=== PATIENT | male | born 1935 | race Asian ===

== ENCOUNTER 2016-11-16 15:11 | Inpatient (IN) | payer MEDICARE, OTHER ==
[~2016-11-16] VITALS: Ht 165.1 cm; Wt 63.5 kg
[2016-11-16 17:18] VITALS: BP 118/68
[2016-11-16] MEDS ORDERED: ACETAMINOPHEN 325 MG TABLET PO PRN (17:30)
[2016-11-16] MEDS ORDERED: MAGNESIUM HYDROXIDE 30 ML UDC PO PRN (17:30)
[2016-11-16] MEDS ORDERED: TEMAZEPAM 7.5 MG CAPSULE PO PRN (17:30)
[2016-11-16] MEDS ORDERED: clonazePAM 0.5 MG TABLET PO PRN (17:30)
[2016-11-16] MEDS ORDERED: MAG HYDROX/AL HYDROX/SIMETH 30 ML UDC PO PRN (17:30)
[2016-11-16] MEDS ORDERED: ISON300T27 PO (18:02)
[2016-11-16] MEDS ORDERED: ESOM40CA PO (18:02)
[2016-11-16] MEDS ORDERED: METF500T4 PO (18:02)
[2016-11-16] MEDS ORDERED: PYRI50TA93 PO (18:02)
[2016-11-16] MEDS ORDERED: HYDR-552 PO (18:02)
[2016-11-16] MEDS ORDERED: POLY17PO4 PO (18:02)
[2016-11-16] MEDS ORDERED: IPRA0.2S49 NEB (18:02)
[2016-11-16] MEDS ORDERED: RIFA600V4 PO (18:02)
[2016-11-16] MEDS ORDERED: ETHA400T8 PO (18:02)
[2016-11-16] MEDS ORDERED: PYRA500T11 PO (18:02)
[2016-11-16] MEDS ORDERED: Z GUARD REMEDY 2 OZ OINT TP PRN (18:30)
[2016-11-16] MEDS ORDERED: DEXTROSE 50%-WATER 50 ML DISP.SYRIN IV PRN (18:30)
[2016-11-16] MEDS ORDERED: INSULIN REGULAR, HUMAN 100 UNIT/ML 3 ML VIAL SQ PRN (18:30)
[2016-11-16 19:51] VITALS: BP 100/65
[2016-11-16] MEDS: BLOOD SUGAR DIAGNOSTIC 1 EACH STRIP IN SCH (21:54)
[2016-11-17 07:28] LABS: ALBUMIN 3.3 g/dL (3.4-5.0); BILIRUBIN,TOTAL 0.5 mg/dL (0.2-1.0); CALCIUM, SERUM 8.7 mg/dL (8.5-10.1); CREATININE 0.9 mg/dL (0.6-1.3); POTASSIUM 3.4 mmol/L (3.5-5.1); TOTAL PROTEIN, SERUM 6.6 g/dL (6.4-8.2)
[2016-11-17] MEDS ORDERED: SELE5TAB8 PO (07:52)
[2016-11-17] MEDS ORDERED: ZOLP5TAB2 PO (07:52)
[2016-11-17] MEDS ORDERED: IPRA0.2S9 IH (07:52)
[2016-11-17] MEDS ORDERED: LEVA1.257 IH (07:52)
[2016-11-17] MEDS ORDERED: BISA5TAB10 PO (07:52)
[2016-11-17] MEDS ORDERED: ACET-868 PO (07:52)
[2016-11-17] MEDS ORDERED: INSU100V27 SQ (07:52)
[2016-11-17] MEDS ORDERED: LACT10SO7 PO (07:52)
[2016-11-17] MEDS ORDERED: ALBU2.5V12 IH (07:52)
[2016-11-17] MEDS ORDERED: LORA1TAB PO (07:52)
[2016-11-17] MEDS ORDERED: MAGN400O6 PO (07:52)
[2016-11-17 08:00] VITALS: BP 131/66
[2016-11-17] MEDS: BLOOD SUGAR DIAGNOSTIC 1 EACH STRIP IN SCH (08:09)
[2016-11-17] MEDS ORDERED: ACETAMINOPHEN 325 MG TABLET PO PRN (11:30)
[2016-11-17] MEDS ORDERED: DEXTROSE 50%-WATER 50 ML DISP.SYRIN IV PRN (11:30)
[2016-11-17] MEDS ORDERED: BISACODYL (5 MG) 5 MG TABLET.DR PO PRN (11:30)
[2016-11-17] MEDS ORDERED: ALBUTEROL FS 2.5 MG/0.5 ML VIAL.NEB IH PRN (11:30)
[2016-11-17] MEDS ORDERED: MAGNESIUM HYDROXIDE 30 ML UDC PO PRN (11:30)
[2016-11-17] MEDS ORDERED: POLYETHYLENE GLYCOL 3350 17 GM POWD.PACK PO PRN (11:30)
[2016-11-17] MEDS ORDERED: LEVALBUTEROL HCL NEB 1.25 MG/0.5 ML VIAL.NEB IH PRN (11:30)
[2016-11-17] MEDS ORDERED: IPRATROPIUM NEB FS 0.5 MG/2.5 ML AMPUL.NEB IH PRN (11:30)
[2016-11-17] MEDS ORDERED: HYDROCODONE/APAP 5/325MG 1 EACH TABLET PO PRN (11:30)
[2016-11-17] MEDS: ESCITALOPRAM OXALATE (10 MG) 10 MG TABLET PO SCH (11:53)
[2016-11-17] MEDS: QUETIAPINE FUMARATE 25 MG TABLET PO SCH ×2 (11:54→18:15)
[2016-11-17] MEDS ORDERED: SELEGILINE HCL 5 MG CAPSULE PO SCH (12:00)
[2016-11-17] MEDS: BLOOD SUGAR DIAGNOSTIC 1 EACH STRIP VI SCH ×3 (12:00→21:41)
[2016-11-17] MEDS ORDERED: POTASSIUM CHLORIDE 20 MEQ TAB.PRT.SR PO ONE (12:00)
[2016-11-17] MEDS: ISONIAZID (300 MG) 300 MG TABLET PO SCH (13:37)
[2016-11-17] MEDS: ETHAMBUTOL HCL (400 MG) 400 MG TABLET PO SCH ×2 (13:38→18:15)
[2016-11-17] MEDS: PYRAZINAMIDE 500 MG TABLET PO SCH (13:39)
[2016-11-17] MEDS: PYRIDOXINE HCL 50 MG TABLET PO SCH (13:40)
[2016-11-17] MEDS: RIFAMPIN 300 MG CAPSULE PO SCH (13:40)
[2016-11-17 16:00] VITALS: BP 137/87
[2016-11-17 16:05] LABS: BASOPHILS % (AUTO) 0.5 % (0.0-2.0); DIFF TOTAL % 100 %; EOSINOPHILS # (AUTO) 0.2 /CMM (0.0-0.7); EOSINOPHILS % (AUTO) 2.3 % (0.0-6.0); HEMATOCRIT 36 % (39-51); LYMPHOCYTES # (AUTO) 1.7 /CMM (0.8-4.8); LYMPHOCYTES % (AUTO) 23.6 % (20.0-44.0); MEAN CORPUSCULAR HEMOGLOBIN 32 PG (26.0-33.0); MEAN CORPUSCULAR HGB CONC 34 g/dl (31.0-36.0); MEAN CORPUSCULAR VOLUME 95 fL (80-96); MONOCYTES # (AUTO) 0.9 /CMM (0.1-1.30); MONOCYTES % (AUTO) 12.2 % (2.0-12.0); NEUTROPHILS # (AUTO) 4.5 /CMM (1.8-8.9); NEUTROPHILS % (AUTO) 61.4 % (43.0-81.0); PLATELET COUNT (AUTO) 334 /CMM (150-450); RED BLOOD CELL COUNT(AUTO) 3.78 MIL/uL (4.5-6.0); WHITE BLOOD COUNT (AUTO) 7.4 K/uL (4.3-11.0)
[2016-11-17] MEDS: METFORMIN 500 MG TABLET PO SCH (18:15)
[2016-11-17 19:55] VITALS: BP 93/53
[2016-11-18 07:18] LABS: BASOPHILS # (AUTO) 0.1 /CMM (0.0-0.2); BASOPHILS % (AUTO) 1.3 % (0.0-2.0); DIFF TOTAL % 100 %; EOSINOPHILS # (AUTO) 0.1 /CMM (0.0-0.7); EOSINOPHILS % (AUTO) 1.4 % (0.0-6.0); HEMATOCRIT 37 % (39-51); HEMOGLOBIN 12.3 g/dL (13.5-17.5); LYMPHOCYTES # (AUTO) 1.4 /CMM (0.8-4.8); LYMPHOCYTES % (AUTO) 20.5 % (20.0-44.0); MEAN CORPUSCULAR HEMOGLOBIN 32 PG (26.0-33.0); MEAN CORPUSCULAR HGB CONC 34 g/dl (31.0-36.0); MEAN CORPUSCULAR VOLUME 94 fL (80-96); MONOCYTES # (AUTO) 0.6 /CMM (0.1-1.30); MONOCYTES % (AUTO) 8.9 % (2.0-12.0); NEUTROPHILS # (AUTO) 4.5 /CMM (1.8-8.9); NEUTROPHILS % (AUTO) 67.9 % (43.0-81.0); PLATELET COUNT (AUTO) 300 /CMM (150-450); WHITE BLOOD COUNT (AUTO) 6.6 K/uL (4.3-11.0)
[2016-11-18] MEDS: BLOOD SUGAR DIAGNOSTIC 1 EACH STRIP VI SCH ×4 (07:30→21:51)
[2016-11-18 08:00] VITALS: BP 100/60
[2016-11-18] MEDS: ETHAMBUTOL HCL (400 MG) 400 MG TABLET PO SCH ×3 (09:34→17:00)
[2016-11-18] MEDS: PYRIDOXINE HCL 50 MG TABLET PO SCH (09:35)
[2016-11-18] MEDS: PYRAZINAMIDE 500 MG TABLET PO SCH (09:35)
[2016-11-18] MEDS: RIFAMPIN 300 MG CAPSULE PO SCH (09:35)
[2016-11-18] MEDS: METFORMIN 500 MG TABLET PO SCH ×2 (09:36→17:00)
[2016-11-18] MEDS: QUETIAPINE FUMARATE 25 MG TABLET PO SCH ×2 (09:36→17:00)
[2016-11-18] MEDS: ISONIAZID (300 MG) 300 MG TABLET PO SCH (09:36)
[2016-11-18] MEDS: ESCITALOPRAM OXALATE (10 MG) 10 MG TABLET PO SCH (09:36)
[2016-11-18] MEDS: INSULIN REGULAR, HUMAN 100 UNIT/ML 3 ML VIAL SQ PRN (12:26)
[2016-11-18 16:00] VITALS: BP 131/69
[2016-11-18 20:00] VITALS: BP 125/75
[2016-11-19 07:16] LABS: BASOPHILS % (AUTO) 0.5 % (0.0-2.0); DIFF TOTAL % 100 %; EOSINOPHILS # (AUTO) 0.1 /CMM (0.0-0.7); EOSINOPHILS % (AUTO) 1.6 % (0.0-6.0); HEMATOCRIT 38 % (39-51); HEMOGLOBIN 12.8 g/dL (13.5-17.5); LYMPHOCYTES # (AUTO) 1.5 /CMM (0.8-4.8); LYMPHOCYTES % (AUTO) 25.3 % (20.0-44.0); MEAN CORPUSCULAR HEMOGLOBIN 32 PG (26.0-33.0); MEAN CORPUSCULAR HGB CONC 34 g/dl (31.0-36.0); MEAN CORPUSCULAR VOLUME 95 fL (80-96); MONOCYTES # (AUTO) 0.5 /CMM (0.1-1.30); MONOCYTES % (AUTO) 8.8 % (2.0-12.0); NEUTROPHILS # (AUTO) 3.7 /CMM (1.8-8.9); NEUTROPHILS % (AUTO) 63.8 % (43.0-81.0); PLATELET COUNT (AUTO) 318 /CMM (150-450); RED BLOOD CELL COUNT(AUTO) 3.99 MIL/uL (4.5-6.0); WHITE BLOOD COUNT (AUTO) 5.9 K/uL (4.3-11.0)
[2016-11-19 07:34] LABS: ALBUMIN 3.3 g/dL (3.4-5.0); BILIRUBIN,DIRECT 0.2 mg/dL (0.0-0.2); BILIRUBIN,TOTAL 0.6 mg/dL (0.2-1.0); CALCIUM, SERUM 8.7 mg/dL (8.5-10.1); CREATININE 0.9 mg/dL (0.6-1.3); INDIRECT BILIRUBIN 0.4 mg/dL (0.0-1.1); POTASSIUM 3.1 mmol/L (3.5-5.1); TOTAL PROTEIN, SERUM 6.7 g/dL (6.4-8.2)
[2016-11-19] MEDS: BLOOD SUGAR DIAGNOSTIC 1 EACH STRIP VI SCH ×4 (07:51→20:29)
[2016-11-19] MEDS: INSULIN REGULAR, HUMAN 100 UNIT/ML 3 ML VIAL SQ PRN (07:52)
[2016-11-19 08:00] VITALS: BP 103/59
[2016-11-19] MEDS: METFORMIN 500 MG TABLET PO SCH ×2 (08:58→17:00)
[2016-11-19] MEDS: QUETIAPINE FUMARATE 25 MG TABLET PO SCH ×3 (08:58→17:00)
[2016-11-19] MEDS: ESCITALOPRAM OXALATE (10 MG) 10 MG TABLET PO SCH (08:58)
[2016-11-19] MEDS: ISONIAZID (300 MG) 300 MG TABLET PO SCH (08:58)
[2016-11-19] MEDS: RIFAMPIN 300 MG CAPSULE PO SCH (08:58)
[2016-11-19] MEDS: ETHAMBUTOL HCL (400 MG) 400 MG TABLET PO SCH ×3 (08:58→17:00)
[2016-11-19] MEDS: PYRAZINAMIDE 500 MG TABLET PO SCH (08:58)
[2016-11-19] MEDS: PYRIDOXINE HCL 50 MG TABLET PO SCH (08:59)
[2016-11-19] MEDS ORDERED: POTASSIUM CHLORIDE 20 MEQ TAB.PRT.SR PO ONE (12:00)
[2016-11-19 16:33] VITALS: BP 96/65
[2016-11-19 19:56] VITALS: BP 90/70
[2016-11-20 08:00] VITALS: BP 100/65
[2016-11-20] MEDS: BLOOD SUGAR DIAGNOSTIC 1 EACH STRIP VI SCH ×4 (08:16→22:06)
[2016-11-20] MEDS: ISONIAZID (300 MG) 300 MG TABLET PO SCH (09:00)
[2016-11-20] MEDS: METFORMIN 500 MG TABLET PO SCH ×2 (09:00→17:00)
[2016-11-20] MEDS: ESCITALOPRAM OXALATE (10 MG) 10 MG TABLET PO SCH (09:00)
[2016-11-20] MEDS: PYRAZINAMIDE 500 MG TABLET PO SCH (09:00)
[2016-11-20] MEDS: PYRIDOXINE HCL 50 MG TABLET PO SCH (09:00)
[2016-11-20] MEDS: QUETIAPINE FUMARATE 25 MG TABLET PO SCH ×3 (09:00→17:00)
[2016-11-20] MEDS: ETHAMBUTOL HCL (400 MG) 400 MG TABLET PO SCH ×3 (09:00→17:00)
[2016-11-20] MEDS: RIFAMPIN 300 MG CAPSULE PO SCH (09:00)
[2016-11-20] MEDS ORDERED: ONDANSETRON 4 MG TAB.RAPDIS PO PRN (10:00)
[2016-11-20 14:37] LABS: ALBUMIN 3.4 g/dL (3.4-5.0); BILIRUBIN,DIRECT 0.3 mg/dL (0.0-0.2); BILIRUBIN,TOTAL 0.7 mg/dL (0.2-1.0); INDIRECT BILIRUBIN 0.4 mg/dL (0.0-1.1); TOTAL PROTEIN, SERUM 6.7 g/dL (6.4-8.2)
[2016-11-20 16:00] VITALS: BP 115/76
[2016-11-20 20:25] VITALS: BP 94/53
[2016-11-21 06:30] VITALS: BP 90/65
[2016-11-21] MEDS: BLOOD SUGAR DIAGNOSTIC 1 EACH STRIP VI SCH ×4 (07:34→22:48)
[2016-11-21 07:48] LABS: BASOPHILS % (AUTO) 0.6 % (0.0-2.0); DIFF TOTAL % 100 %; EOSINOPHILS # (AUTO) 0.1 /CMM (0.0-0.7); EOSINOPHILS % (AUTO) 2.1 % (0.0-6.0); HEMATOCRIT 37 % (39-51); HEMOGLOBIN 12.4 g/dL (13.5-17.5); LYMPHOCYTES # (AUTO) 1.6 /CMM (0.8-4.8); LYMPHOCYTES % (AUTO) 26.2 % (20.0-44.0); MEAN CORPUSCULAR HEMOGLOBIN 32 PG (26.0-33.0); MEAN CORPUSCULAR HGB CONC 34 g/dl (31.0-36.0); MEAN CORPUSCULAR VOLUME 94 fL (80-96); MONOCYTES # (AUTO) 0.6 /CMM (0.1-1.30); MONOCYTES % (AUTO) 9.3 % (2.0-12.0); NEUTROPHILS # (AUTO) 3.7 /CMM (1.8-8.9); NEUTROPHILS % (AUTO) 61.8 % (43.0-81.0); PLATELET COUNT (AUTO) 340 /CMM (150-450); RED BLOOD CELL COUNT(AUTO) 3.88 MIL/uL (4.5-6.0)
[2016-11-21 07:59] LABS: ALBUMIN 3.5 g/dL (3.4-5.0); BILIRUBIN,DIRECT 0.2 mg/dL (0.0-0.2); BILIRUBIN,TOTAL 0.6 mg/dL (0.2-1.0); CALCIUM, SERUM 9.1 mg/dL (8.5-10.1); INDIRECT BILIRUBIN 0.4 mg/dL (0.0-1.1); POTASSIUM 3.1 mmol/L (3.5-5.1); TOTAL PROTEIN, SERUM 6.8 g/dL (6.4-8.2)
[2016-11-21 08:00] VITALS: BP 103/67
[2016-11-21] MEDS: ETHAMBUTOL HCL (400 MG) 400 MG TABLET PO SCH ×3 (09:00→17:00)
[2016-11-21] MEDS: METFORMIN 500 MG TABLET PO SCH ×2 (09:00→17:00)
[2016-11-21] MEDS: PYRIDOXINE HCL 50 MG TABLET PO SCH (09:00)
[2016-11-21] MEDS: ESCITALOPRAM OXALATE (10 MG) 10 MG TABLET PO SCH (09:00)
[2016-11-21] MEDS: ISONIAZID (300 MG) 300 MG TABLET PO SCH (09:00)
[2016-11-21] MEDS: PYRAZINAMIDE 500 MG TABLET PO SCH (09:00)
[2016-11-21] MEDS: QUETIAPINE FUMARATE 25 MG TABLET PO SCH ×3 (09:00→17:00)
[2016-11-21] MEDS: RIFAMPIN 300 MG CAPSULE PO SCH (09:00)
[2016-11-21 16:20] VITALS: BP 99/60
[2016-11-21] MEDS ORDERED: POTASSIUM CHLORIDE 20 MEQ TAB.PRT.SR PO ONE (17:00)
[2016-11-21 23:47] VITALS: BP 110/73
[2016-11-22] MEDS: BLOOD SUGAR DIAGNOSTIC 1 EACH STRIP VI SCH ×4 (07:44→22:11)
[2016-11-22 08:00] VITALS: BP 102/59
[2016-11-22] MEDS: ESCITALOPRAM OXALATE (10 MG) 10 MG TABLET PO SCH (09:00)
[2016-11-22] MEDS: ISONIAZID (300 MG) 300 MG TABLET PO SCH (09:00)
[2016-11-22] MEDS: PYRAZINAMIDE 500 MG TABLET PO SCH (09:00)
[2016-11-22] MEDS: RIFAMPIN 300 MG CAPSULE PO SCH (09:00)
[2016-11-22] MEDS: QUETIAPINE FUMARATE 25 MG TABLET PO SCH ×3 (09:00→17:00)
[2016-11-22] MEDS: METFORMIN 500 MG TABLET PO SCH ×2 (09:00→17:00)
[2016-11-22] MEDS: PYRIDOXINE HCL 50 MG TABLET PO SCH (09:00)
[2016-11-22] MEDS: ETHAMBUTOL HCL (400 MG) 400 MG TABLET PO SCH ×3 (09:00→17:00)
[2016-11-22 15:59] VITALS: BP 90/68
[2016-11-22 20:00] VITALS: BP 102/70
[2016-11-22] MEDS: BOOST GLUCOSE CONTROL VANILLA 237 ML BOX PO SCH (22:11)
[2016-11-23] MEDS: BLOOD SUGAR DIAGNOSTIC 1 EACH STRIP VI SCH ×4 (07:30→21:43)
[2016-11-23 08:09] VITALS: BP 96/73
[2016-11-23 08:17] VITALS: BP 96/73
[2016-11-23] MEDS: PYRAZINAMIDE 500 MG TABLET PO SCH (09:00)
[2016-11-23] MEDS: ISONIAZID (300 MG) 300 MG TABLET PO SCH (09:00)
[2016-11-23] MEDS: PYRIDOXINE HCL 50 MG TABLET PO SCH (09:00)
[2016-11-23] MEDS: ESCITALOPRAM OXALATE (10 MG) 10 MG TABLET PO SCH (09:00)
[2016-11-23] MEDS: BOOST GLUCOSE CONTROL VANILLA 237 ML BOX PO SCH ×3 (09:00→17:00)
[2016-11-23] MEDS: RIFAMPIN 300 MG CAPSULE PO SCH (09:00)
[2016-11-23] MEDS: METFORMIN 500 MG TABLET PO SCH ×2 (09:00→17:00)
[2016-11-23] MEDS: QUETIAPINE FUMARATE 25 MG TABLET PO SCH ×3 (09:00→17:00)
[2016-11-23] MEDS: ETHAMBUTOL HCL (400 MG) 400 MG TABLET PO SCH ×3 (09:00→17:00)
[2016-11-23 16:00] VITALS: BP 100/70
[2016-11-23 17:21] LABS: BASOPHILS % (AUTO) 0.5 % (0.0-2.0); DIFF TOTAL % 100 %; EOSINOPHILS # (AUTO) 0.1 /CMM (0.0-0.7); EOSINOPHILS % (AUTO) 1.3 % (0.0-6.0); HEMATOCRIT 39 % (39-51); HEMOGLOBIN 12.8 g/dL (13.5-17.5); LYMPHOCYTES # (AUTO) 1.7 /CMM (0.8-4.8); LYMPHOCYTES % (AUTO) 31.3 % (20.0-44.0); MEAN CORPUSCULAR HEMOGLOBIN 31 PG (26.0-33.0); MEAN CORPUSCULAR HGB CONC 33 g/dl (31.0-36.0); MEAN CORPUSCULAR VOLUME 94 fL (80-96); MONOCYTES # (AUTO) 0.5 /CMM (0.1-1.30); MONOCYTES % (AUTO) 8.7 % (2.0-12.0); NEUTROPHILS # (AUTO) 3.2 /CMM (1.8-8.9); NEUTROPHILS % (AUTO) 58.2 % (43.0-81.0); PLATELET COUNT (AUTO) 329 /CMM (150-450); RED BLOOD CELL COUNT(AUTO) 4.11 MIL/uL (4.5-6.0); WHITE BLOOD COUNT (AUTO) 5.5 K/uL (4.3-11.0)
[2016-11-23 17:34] LABS: ANION GAP 16 (5-14); CARBON DIOXIDE 25 mmol/L (21-32); CHLORIDE 105 mmol/L (98-107); GLUCOSE 125 mg/dL (74-106); POTASSIUM 3.2 mmol/L (3.5-5.1); SODIUM SERUM 143 mmol/L (136-145); UREA NITROGEN, BLOOD 20 mg/dL (7-18)
[2016-11-23 17:40] LABS: ALANINE AMINOTRANSFERASE 154 U/L (12-78); ALBUMIN 3.5 g/dL (3.4-5.0); ASPARTATE AMINOTRANSFERASE 85 U/L (15-37); BILIRUBIN,DIRECT 0.3 mg/dL (0.0-0.2); BILIRUBIN,TOTAL 0.6 mg/dL (0.2-1.0); INDIRECT BILIRUBIN 0.3 mg/dL (0.0-1.1); TOTAL PROTEIN, SERUM 6.8 g/dL (6.4-8.2)
[2016-11-23 17:47] LABS: TROPONIN I < 0.017 ng/mL (0.00-0.056)
[2016-11-23] MEDS ORDERED: IV D5/0.45 NACL 1,000 ML IV ONE (18:00)
[2016-11-23] MEDS: POTASSIUM CHLORIDE 20 MEQ TAB.PRT.SR PO ONE ×2 (19:00→19:12)
[2016-11-23 20:06] VITALS: BP 123/67
[2016-11-24] MEDS: BLOOD SUGAR DIAGNOSTIC 1 EACH STRIP VI SCH ×4 (07:30→21:33)
[2016-11-24 08:15] VITALS: BP 100/56
[2016-11-24] MEDS: BOOST GLUCOSE CONTROL VANILLA 237 ML BOX PO SCH ×3 (09:00→17:00)
[2016-11-24] MEDS: METFORMIN 500 MG TABLET PO SCH ×2 (09:00→17:00)
[2016-11-24] MEDS: PYRIDOXINE HCL 50 MG TABLET PO SCH (09:00)
[2016-11-24] MEDS: PYRAZINAMIDE 500 MG TABLET PO SCH (09:00)
[2016-11-24] MEDS: ETHAMBUTOL HCL (400 MG) 400 MG TABLET PO SCH ×3 (09:00→17:00)
[2016-11-24] MEDS: RIFAMPIN 300 MG CAPSULE PO SCH (09:00)
[2016-11-24] MEDS: QUETIAPINE FUMARATE 25 MG TABLET PO SCH ×3 (09:00→17:00)
[2016-11-24] MEDS: ISONIAZID (300 MG) 300 MG TABLET PO SCH (09:00)
[2016-11-24] MEDS: ESCITALOPRAM OXALATE (10 MG) 10 MG TABLET PO SCH (09:00)
[2016-11-24 16:00] VITALS: BP 95/70
[2016-11-24] MEDS ORDERED: POTASSIUM CHLORIDE 20 MEQ POWDER PACKET GT ONE (18:00)
[2016-11-24 19:50] VITALS: BP 96/61
[2016-11-24] MEDS ORDERED: IV NS 0.9% 500 ML IV ONE ×2 (20:30→20:35)
[2016-11-24] MEDS ORDERED: IV SET PRIMARY PUMP SET 1 EA INFUS.SET MC ONE (20:33)
[2016-11-25 06:22] VITALS: BP 100/67
[2016-11-25 07:59] VITALS: BP 90/62
[2016-11-25 08:18] LABS: ALBUMIN 3.5 g/dL (3.4-5.0); BILIRUBIN,DIRECT 0.2 mg/dL (0.0-0.2); BILIRUBIN,TOTAL 0.7 mg/dL (0.2-1.0); CALCIUM, SERUM 8.8 mg/dL (8.5-10.1); INDIRECT BILIRUBIN 0.5 mg/dL (0.0-1.1); TOTAL PROTEIN, SERUM 6.8 g/dL (6.4-8.2)
[2016-11-25 08:33] LABS: BASOPHILS % (AUTO) 0.4 % (0.0-2.0); DIFF TOTAL % 100 %; EOSINOPHILS # (AUTO) 0.1 /CMM (0.0-0.7); HEMATOCRIT 39 % (39-51); LYMPHOCYTES # (AUTO) 1.5 /CMM (0.8-4.8); LYMPHOCYTES % (AUTO) 23.3 % (20.0-44.0); MEAN CORPUSCULAR HEMOGLOBIN 32 PG (26.0-33.0); MEAN CORPUSCULAR HGB CONC 34 g/dl (31.0-36.0); MEAN CORPUSCULAR VOLUME 95 fL (80-96); MONOCYTES # (AUTO) 0.6 /CMM (0.1-1.30); MONOCYTES % (AUTO) 9.6 % (2.0-12.0); NEUTROPHILS # (AUTO) 4.2 /CMM (1.8-8.9); NEUTROPHILS % (AUTO) 65.7 % (43.0-81.0); PLATELET COUNT (AUTO) 321 /CMM (150-450); RED BLOOD CELL COUNT(AUTO) 4.08 MIL/uL (4.5-6.0); WHITE BLOOD COUNT (AUTO) 6.4 K/uL (4.3-11.0)
[2016-11-25] MEDS: BLOOD SUGAR DIAGNOSTIC 1 EACH STRIP VI SCH ×4 (08:46→21:59)
[2016-11-25] MEDS: ISONIAZID (300 MG) 300 MG TABLET PO SCH (09:00)
[2016-11-25] MEDS: QUETIAPINE FUMARATE 25 MG TABLET PO SCH ×3 (09:00→17:00)
[2016-11-25] MEDS: METFORMIN 500 MG TABLET PO SCH ×2 (09:00→17:00)
[2016-11-25] MEDS: RIFAMPIN 300 MG CAPSULE PO SCH (09:00)
[2016-11-25] MEDS: BOOST GLUCOSE CONTROL VANILLA 237 ML BOX PO SCH ×3 (09:00→17:00)
[2016-11-25] MEDS: ESCITALOPRAM OXALATE (10 MG) 10 MG TABLET PO SCH (09:00)
[2016-11-25] MEDS ORDERED: POTASSIUM CHLORIDE 20 MEQ TAB.PRT.SR PO ONE (09:00)
[2016-11-25] MEDS: PYRIDOXINE HCL 50 MG TABLET PO SCH (09:00)
[2016-11-25] MEDS: PYRAZINAMIDE 500 MG TABLET PO SCH (09:00)
[2016-11-25] MEDS: ETHAMBUTOL HCL (400 MG) 400 MG TABLET PO SCH ×3 (09:00→17:00)
[2016-11-25 16:19] VITALS: BP 108/71
[2016-11-25 20:50] VITALS: BP 97/60
[2016-11-25] MEDS ORDERED: IV NS 0.9% 1,000 ML ONE (20:51)
[2016-11-25] MEDS ORDERED: IV SET PRIMARY PUMP SET 1 EA INFUS.SET MC ONE ×2 (20:52→23:09)
[2016-11-25] MEDS ORDERED: IV NS 0.9% 1,000 ML BAG IV ONE (21:00)
[2016-11-25] MEDS ORDERED: POTASSIUM CL. PREMIX PERIPHER. 200 ML ONE (22:26)
[2016-11-25] MEDS: POTASSIUM CL. PREMIX PERIPHER. 50 ML IV SCH (23:13)
[2016-11-26] MEDS: POTASSIUM CL. PREMIX PERIPHER. 50 ML IV SCH ×3 (00:14→02:54)
[2016-11-26 07:18] LABS: CALCIUM, SERUM 8.4 mg/dL (8.5-10.1); CREATININE 0.9 mg/dL (0.6-1.3); POTASSIUM 3.4 mmol/L (3.5-5.1)
[2016-11-26] MEDS: BLOOD SUGAR DIAGNOSTIC 1 EACH STRIP VI SCH ×4 (07:30→22:16)
[2016-11-26 08:30] VITALS: BP 132/63
[2016-11-26] MEDS ORDERED: SODIUM CL FOR INHALATION 3% 15 ML VIAL.NEB IH ONE (08:30)
[2016-11-26] MEDS: PYRIDOXINE HCL 50 MG TABLET PO SCH (09:00)
[2016-11-26] MEDS: PYRAZINAMIDE 500 MG TABLET PO SCH (09:00)
[2016-11-26] MEDS: ISONIAZID (300 MG) 300 MG TABLET PO SCH (09:00)
[2016-11-26] MEDS: METFORMIN 500 MG TABLET PO SCH ×2 (09:00→17:00)
[2016-11-26] MEDS: QUETIAPINE FUMARATE 25 MG TABLET PO SCH ×2 (09:00→13:00)
[2016-11-26] MEDS: ESCITALOPRAM OXALATE (10 MG) 10 MG TABLET PO SCH (09:00)
[2016-11-26] MEDS: ETHAMBUTOL HCL (400 MG) 400 MG TABLET PO SCH ×3 (09:00→17:00)
[2016-11-26] MEDS: RIFAMPIN 300 MG CAPSULE PO SCH (09:00)
[2016-11-26] MEDS: BOOST GLUCOSE CONTROL VANILLA 237 ML BOX PO SCH ×3 (09:00→17:00)
[2016-11-26] MEDS ORDERED: POTASSIUM CHLORIDE 20 MEQ TAB.PRT.SR PO ONE (09:30)
[2016-11-26 16:29] VITALS: BP 128/60
[2016-11-26 20:01] VITALS: BP 96/60
[2016-11-26] MEDS ORDERED: OLANZAPINE 10 MG VIAL IM PRN (22:00)
[2016-11-26] MEDS: OLANZAPINE 5 MG/TAB.RAPDIS PO SCH (22:26)
[2016-11-27] MEDS: BLOOD SUGAR DIAGNOSTIC 1 EACH STRIP VI SCH ×4 (07:30→22:03)
[2016-11-27 08:00] VITALS: BP 108/75
[2016-11-27 08:17] LABS: CALCIUM, SERUM 8.9 mg/dL (8.5-10.1); POTASSIUM 3.1 mmol/L (3.5-5.1)
[2016-11-27] MEDS: RIFAMPIN 300 MG CAPSULE PO SCH (09:00)
[2016-11-27] MEDS: BOOST GLUCOSE CONTROL VANILLA 237 ML BOX PO SCH ×3 (09:00→17:00)
[2016-11-27] MEDS: PYRAZINAMIDE 500 MG TABLET PO SCH (09:00)
[2016-11-27] MEDS: METFORMIN 500 MG TABLET PO SCH ×2 (09:00→17:00)
[2016-11-27] MEDS: POTASSIUM CHLORIDE 20 MEQ TAB.PRT.SR PO SCH ×2 (09:00→14:09)
[2016-11-27] MEDS: PYRIDOXINE HCL 50 MG TABLET PO SCH (09:00)
[2016-11-27] MEDS: ETHAMBUTOL HCL (400 MG) 400 MG TABLET PO SCH ×3 (09:00→17:00)
[2016-11-27] MEDS ORDERED: SODIUM CL FOR INHALATION 3% 15 ML VIAL.NEB IH ONE ×2 (09:00→18:00)
[2016-11-27] MEDS: ESCITALOPRAM OXALATE (10 MG) 10 MG TABLET PO SCH (09:00)
[2016-11-27] MEDS: ISONIAZID (300 MG) 300 MG TABLET PO SCH (09:00)
[2016-11-27 16:00] VITALS: BP 91/65
[2016-11-27 18:09] LABS: QFT NIL VALUE 0.11 IU/mL (.)
[2016-11-27 20:00] VITALS: BP 104/68
[2016-11-27] MEDS: OLANZAPINE 5 MG/TAB.RAPDIS PO SCH (22:03)
[2016-11-27] MEDS: INSULIN REGULAR, HUMAN 100 UNIT/ML 3 ML VIAL SQ PRN (22:16)
[2016-11-28] MEDS: BLOOD SUGAR DIAGNOSTIC 1 EACH STRIP VI SCH ×4 (07:30→22:01)
[2016-11-28 08:00] VITALS: BP 89/48
[2016-11-28 08:25] LABS: POTASSIUM 3.7 mmol/L (3.5-5.1)
[2016-11-28] MEDS: PYRAZINAMIDE 500 MG TABLET PO SCH (09:00)
[2016-11-28] MEDS: PYRIDOXINE HCL 50 MG TABLET PO SCH (09:00)
[2016-11-28] MEDS: ESCITALOPRAM OXALATE (10 MG) 10 MG TABLET PO SCH (09:00)
[2016-11-28] MEDS: ETHAMBUTOL HCL (400 MG) 400 MG TABLET PO SCH ×3 (09:00→17:00)
[2016-11-28] MEDS: RIFAMPIN 300 MG CAPSULE PO SCH (09:00)
[2016-11-28] MEDS: ISONIAZID (300 MG) 300 MG TABLET PO SCH (09:00)
[2016-11-28] MEDS: BOOST GLUCOSE CONTROL VANILLA 237 ML BOX PO SCH ×3 (09:00→17:00)
[2016-11-28] MEDS: METFORMIN 500 MG TABLET PO SCH ×2 (09:00→17:00)
[2016-11-28 16:00] VITALS: BP 99/76
[2016-11-28 20:00] VITALS: BP 82/57
[2016-11-28] MEDS ORDERED: IV NS 0.9% 1,000 ML ONE (21:38)
[2016-11-28] MEDS ORDERED: IV SET PRIMARY PUMP SET 1 EA INFUS.SET MC ONE (21:39)
[2016-11-28] MEDS: OLANZAPINE 5 MG/TAB.RAPDIS PO SCH (21:56)
[2016-11-28] MEDS ORDERED: IV NS 0.9% 1,000 ML BAG IV ONE (22:00)
[2016-11-29 00:17] VITALS: BP 104/75
[2016-11-29] MEDS: BLOOD SUGAR DIAGNOSTIC 1 EACH STRIP VI SCH ×4 (07:30→21:43)
[2016-11-29 08:00] VITALS: BP 122/60
[2016-11-29] MEDS: ESCITALOPRAM OXALATE (10 MG) 10 MG TABLET PO SCH (09:00)
[2016-11-29] MEDS: PYRIDOXINE HCL 50 MG TABLET PO SCH (09:00)
[2016-11-29] MEDS: ISONIAZID (300 MG) 300 MG TABLET PO SCH (09:00)
[2016-11-29] MEDS: METFORMIN 500 MG TABLET PO SCH ×2 (09:00→17:00)
[2016-11-29] MEDS: PYRAZINAMIDE 500 MG TABLET PO SCH (09:00)
[2016-11-29] MEDS: BOOST GLUCOSE CONTROL VANILLA 237 ML BOX PO SCH ×3 (09:00→17:00)
[2016-11-29] MEDS: ETHAMBUTOL HCL (400 MG) 400 MG TABLET PO SCH ×3 (09:00→17:00)
[2016-11-29] MEDS: RIFAMPIN 300 MG CAPSULE PO SCH (09:00)
[2016-11-29 16:07] VITALS: BP 120/63
[2016-11-29 19:53] VITALS: BP 98/69
[2016-11-29] MEDS: OLANZAPINE 5 MG/TAB.RAPDIS PO SCH (21:42)
[2016-11-30 08:00] VITALS: BP 97/64
[2016-11-30] MEDS: METFORMIN 500 MG TABLET PO SCH ×2 (09:00→17:00)
[2016-11-30] MEDS: ESCITALOPRAM OXALATE (10 MG) 10 MG TABLET PO SCH (09:00)
[2016-11-30] MEDS: ETHAMBUTOL HCL (400 MG) 400 MG TABLET PO SCH ×3 (09:00→17:00)
[2016-11-30] MEDS: RIFAMPIN 300 MG CAPSULE PO SCH (09:00)
[2016-11-30] MEDS: PYRIDOXINE HCL 50 MG TABLET PO SCH (09:00)
[2016-11-30] MEDS: PYRAZINAMIDE 500 MG TABLET PO SCH (09:00)
[2016-11-30] MEDS: BOOST GLUCOSE CONTROL VANILLA 237 ML BOX PO SCH ×3 (09:00→17:00)
[2016-11-30] MEDS: ISONIAZID (300 MG) 300 MG TABLET PO SCH (09:00)
[2016-11-30] MEDS: BLOOD SUGAR DIAGNOSTIC 1 EACH STRIP VI SCH ×4 (09:31→21:59)
[2016-11-30 16:12] VITALS: BP 99/68
[2016-11-30 19:54] VITALS: BP 95/62
[2016-11-30] MEDS: OLANZAPINE 5 MG/TAB.RAPDIS PO SCH (21:54)
[2016-12-01] MEDS: BLOOD SUGAR DIAGNOSTIC 1 EACH STRIP VI SCH ×5 (08:01→23:15)
[2016-12-01 08:08] VITALS: BP 101/64
[2016-12-01] MEDS: RIFAMPIN 300 MG CAPSULE PO SCH (09:00)
[2016-12-01] MEDS: PYRAZINAMIDE 500 MG TABLET PO SCH (09:00)
[2016-12-01] MEDS: BOOST GLUCOSE CONTROL VANILLA 237 ML BOX PO SCH ×3 (09:00→17:00)
[2016-12-01] MEDS: ETHAMBUTOL HCL (400 MG) 400 MG TABLET PO SCH ×3 (09:00→17:00)
[2016-12-01] MEDS: METFORMIN 500 MG TABLET PO SCH ×2 (09:00→17:00)
[2016-12-01] MEDS: ISONIAZID (300 MG) 300 MG TABLET PO SCH (09:00)
[2016-12-01] MEDS: PYRIDOXINE HCL 50 MG TABLET PO SCH (09:00)
[2016-12-01] MEDS: ESCITALOPRAM OXALATE (10 MG) 10 MG TABLET PO SCH (10:38)
[2016-12-01 16:25] VITALS: BP 117/53
[2016-12-01 20:00] VITALS: BP 100/46
[2016-12-01 20:17] VITALS: BP 100/46
[2016-12-01] MEDS: OLANZAPINE 5 MG/TAB.RAPDIS PO SCH (22:00)
[2016-12-01] MEDS: *INSULIN REGULAR(HUMULIN R)HUM 100 UNIT/ML VIAL SQ PRN (23:23)
[2016-12-02] MEDS: BLOOD SUGAR DIAGNOSTIC 1 EACH STRIP VI SCH ×4 (06:27→22:00)
[2016-12-02] MEDS: INSULIN REGULAR, HUMAN 100 UNIT/ML 3 ML VIAL SQ PRN (06:33)
[2016-12-02] MEDS ORDERED: IV NS 0.9% 500 ML IV ONE (08:30)
[2016-12-02] MEDS: PYRAZINAMIDE 500 MG TABLET PO SCH (09:00)
[2016-12-02] MEDS: ESCITALOPRAM OXALATE (10 MG) 10 MG TABLET PO SCH (09:00)
[2016-12-02] MEDS: METFORMIN 500 MG TABLET PO SCH ×2 (09:00→17:00)
[2016-12-02] MEDS: PYRIDOXINE HCL 50 MG TABLET PO SCH (09:00)
[2016-12-02] MEDS: ISONIAZID (300 MG) 300 MG TABLET PO SCH (09:00)
[2016-12-02] MEDS: RIFAMPIN 300 MG CAPSULE PO SCH (09:00)
[2016-12-02] MEDS: BOOST GLUCOSE CONTROL VANILLA 237 ML BOX PO SCH ×3 (09:00→17:58)
[2016-12-02] MEDS: ETHAMBUTOL HCL (400 MG) 400 MG TABLET PO SCH ×3 (09:00→17:00)
[2016-12-02 12:29] LABS: BILIRUBIN,DIRECT 0.2 mg/dL (0.0-0.2); BILIRUBIN,TOTAL 0.6 mg/dL (0.2-1.0); INDIRECT BILIRUBIN 0.4 mg/dL (0.0-1.1)
[2016-12-02 16:00] VITALS: BP 99/56
[2016-12-02 19:49] VITALS: BP 97/59
[2016-12-03] MEDS: OLANZAPINE 5 MG/TAB.RAPDIS PO SCH (00:12)
[2016-12-03 07:26] LABS: BASOPHILS % (AUTO) 0.6 % (0.0-2.0); DIFF TOTAL % 100 %; EOSINOPHILS % (AUTO) 0.5 % (0.0-6.0); HEMATOCRIT 41 % (39-51); HEMOGLOBIN 13.5 g/dL (13.5-17.5); LYMPHOCYTES # (AUTO) 1.9 /CMM (0.8-4.8); LYMPHOCYTES % (AUTO) 34.8 % (20.0-44.0); MEAN CORPUSCULAR HEMOGLOBIN 32 PG (26.0-33.0); MEAN CORPUSCULAR HGB CONC 33 g/dl (31.0-36.0); MEAN CORPUSCULAR VOLUME 96 fL (80-96); MONOCYTES # (AUTO) 0.5 /CMM (0.1-1.30); MONOCYTES % (AUTO) 8.9 % (2.0-12.0); NEUTROPHILS % (AUTO) 55.2 % (43.0-81.0); PLATELET COUNT (AUTO) 307 /CMM (150-450); RED BLOOD CELL COUNT(AUTO) 4.24 MIL/uL (4.5-6.0); WHITE BLOOD COUNT (AUTO) 5.5 K/uL (4.3-11.0)
[2016-12-03 08:00] VITALS: BP 130/70
[2016-12-03 08:07] LABS: CALCIUM, SERUM 9.7 mg/dL (8.5-10.1); CREATININE 1.1 mg/dL (0.6-1.3); PHOSPHORUS 3.2 mg/dL (2.5-4.9); POTASSIUM 3.5 mmol/L (3.5-5.1)
[2016-12-03] MEDS: BLOOD SUGAR DIAGNOSTIC 1 EACH STRIP VI SCH ×4 (08:11→21:47)
[2016-12-03] MEDS: RIFAMPIN 300 MG CAPSULE PO SCH (09:00)
[2016-12-03] MEDS: ETHAMBUTOL HCL (400 MG) 400 MG TABLET PO SCH ×3 (09:00→17:00)
[2016-12-03] MEDS: METFORMIN 500 MG TABLET PO SCH ×2 (09:00→17:00)
[2016-12-03] MEDS: ESCITALOPRAM OXALATE (10 MG) 10 MG TABLET PO SCH (09:00)
[2016-12-03] MEDS: ISONIAZID (300 MG) 300 MG TABLET PO SCH (09:00)
[2016-12-03] MEDS: PYRIDOXINE HCL 50 MG TABLET PO SCH (09:00)
[2016-12-03] MEDS: PYRAZINAMIDE 500 MG TABLET PO SCH (09:00)
[2016-12-03] MEDS: BOOST GLUCOSE CONTROL VANILLA 237 ML BOX PO SCH ×3 (09:50→17:00)
[2016-12-03] MEDS: HALOPERIDOL LACTATE 10 MG/5 ML UDC PO SCH ×2 (13:00→17:00)
[2016-12-03] MEDS: HALOPERIDOL LACTATE INJ 5 MG/ML VIAL IM PRN ×2 (15:04→18:00)
[2016-12-03 16:00] VITALS: BP 100/63
[2016-12-03 20:03] VITALS: BP 90/61
[2016-12-04] MEDS: BLOOD SUGAR DIAGNOSTIC 1 EACH STRIP VI SCH ×4 (07:30→21:25)
[2016-12-04 08:00] VITALS: BP 94/62
[2016-12-04 08:05] VITALS: BP 94/62
[2016-12-04] MEDS: HALOPERIDOL LACTATE 10 MG/5 ML UDC PO SCH ×3 (09:00→18:10)
[2016-12-04] MEDS: METFORMIN 500 MG TABLET PO SCH ×2 (10:22→18:10)
[2016-12-04] MEDS: PYRIDOXINE HCL 50 MG TABLET PO SCH (10:22)
[2016-12-04] MEDS: RIFAMPIN 300 MG CAPSULE PO SCH (10:22)
[2016-12-04] MEDS: ISONIAZID (300 MG) 300 MG TABLET PO SCH (10:23)
[2016-12-04] MEDS: ESCITALOPRAM OXALATE (10 MG) 10 MG TABLET PO SCH (10:23)
[2016-12-04] MEDS: PYRAZINAMIDE 500 MG TABLET PO SCH (10:23)
[2016-12-04] MEDS: ETHAMBUTOL HCL (400 MG) 400 MG TABLET PO SCH ×3 (10:23→18:09)
[2016-12-04] MEDS: BOOST GLUCOSE CONTROL VANILLA 237 ML BOX PO SCH ×3 (10:26→17:00)
[2016-12-04] MEDS: HALOPERIDOL LACTATE INJ 5 MG/ML VIAL IM PRN ×2 (14:01→14:10)
[2016-12-04 16:00] VITALS: BP 83/57
[2016-12-04 16:29] VITALS: BP 83/57
[2016-12-04 19:52] VITALS: BP 98/55
[2016-12-04] MEDS: INSULIN REGULAR, HUMAN 100 UNIT/ML 3 ML VIAL SQ PRN (21:25)
[2016-12-05 08:00] VITALS: BP 90/56
[2016-12-05] MEDS: BLOOD SUGAR DIAGNOSTIC 1 EACH STRIP VI SCH ×4 (08:25→21:14)
[2016-12-05] MEDS: BOOST GLUCOSE CONTROL VANILLA 237 ML BOX PO SCH ×3 (09:00→17:39)
[2016-12-05] MEDS: METFORMIN 500 MG TABLET PO SCH ×2 (09:00→17:39)
[2016-12-05] MEDS: ESCITALOPRAM OXALATE (10 MG) 10 MG TABLET PO SCH (09:29)
[2016-12-05] MEDS: ISONIAZID (300 MG) 300 MG TABLET PO SCH (09:29)
[2016-12-05] MEDS: PYRAZINAMIDE 500 MG TABLET PO SCH (09:30)
[2016-12-05] MEDS: HALOPERIDOL LACTATE 10 MG/5 ML UDC PO SCH ×3 (09:30→17:39)
[2016-12-05] MEDS: RIFAMPIN 300 MG CAPSULE PO SCH (09:30)
[2016-12-05] MEDS: ETHAMBUTOL HCL (400 MG) 400 MG TABLET PO SCH ×3 (09:30→17:39)
[2016-12-05] MEDS: PYRIDOXINE HCL 50 MG TABLET PO SCH (09:30)
[2016-12-05 16:00] VITALS: BP 100/55
[2016-12-05 20:00] VITALS: BP 83/52
[2016-12-05] MEDS ORDERED: IV D5/0.45 NACL 1,000 ML IV ONE ×2 (22:09→22:30)
[2016-12-05] MEDS ORDERED: IV SET PRIMARY PUMP SET 1 EA INFUS.SET MC ONE (22:11)
[2016-12-06 08:08] VITALS: BP 90/45
[2016-12-06] MEDS: BLOOD SUGAR DIAGNOSTIC 1 EACH STRIP VI SCH ×4 (09:58→21:30)
[2016-12-06] MEDS: BOOST GLUCOSE CONTROL VANILLA 237 ML BOX PO SCH ×3 (09:58→18:51)
[2016-12-06] MEDS: RIFAMPIN 300 MG CAPSULE PO SCH (09:59)
[2016-12-06] MEDS: METFORMIN 500 MG TABLET PO SCH ×2 (09:59→16:53)
[2016-12-06] MEDS: ESCITALOPRAM OXALATE (10 MG) 10 MG TABLET PO SCH (09:59)
[2016-12-06] MEDS: ISONIAZID (300 MG) 300 MG TABLET PO SCH (09:59)
[2016-12-06] MEDS: PYRAZINAMIDE 500 MG TABLET PO SCH (09:59)
[2016-12-06] MEDS: ETHAMBUTOL HCL (400 MG) 400 MG TABLET PO SCH ×3 (09:59→16:53)
[2016-12-06] MEDS: PYRIDOXINE HCL 50 MG TABLET PO SCH (09:59)
[2016-12-06] MEDS: HALOPERIDOL LACTATE 10 MG/5 ML UDC PO SCH ×3 (09:59→16:53)
[2016-12-06 16:00] VITALS: BP 92/51
[2016-12-06 20:00] VITALS: BP 102/69
[2016-12-07] MEDS: BLOOD SUGAR DIAGNOSTIC 1 EACH STRIP VI SCH ×4 (07:30→21:18)
[2016-12-07 08:03] VITALS: BP 93/54
[2016-12-07] MEDS: METFORMIN 500 MG TABLET PO SCH ×2 (08:08→16:46)
[2016-12-07] MEDS: HALOPERIDOL LACTATE 10 MG/5 ML UDC PO SCH ×3 (08:09→16:46)
[2016-12-07] MEDS: RIFAMPIN 300 MG CAPSULE PO SCH (08:09)
[2016-12-07] MEDS: PYRIDOXINE HCL 50 MG TABLET PO SCH (08:09)
[2016-12-07] MEDS: ISONIAZID (300 MG) 300 MG TABLET PO SCH (08:09)
[2016-12-07] MEDS: PYRAZINAMIDE 500 MG TABLET PO SCH (08:09)
[2016-12-07] MEDS: ESCITALOPRAM OXALATE (10 MG) 10 MG TABLET PO SCH (08:09)
[2016-12-07] MEDS: ETHAMBUTOL HCL (400 MG) 400 MG TABLET PO SCH ×3 (08:09→16:46)
[2016-12-07] MEDS: BOOST GLUCOSE CONTROL VANILLA 237 ML BOX PO SCH ×3 (09:00→16:45)
[2016-12-07 16:14] VITALS: BP 100/58
[2016-12-07 19:51] VITALS: BP 118/71
[2016-12-08 08:00] VITALS: BP 96/55
[2016-12-08] MEDS: BOOST GLUCOSE CONTROL VANILLA 237 ML BOX PO SCH ×3 (09:00→17:53)
[2016-12-08] MEDS: METFORMIN 500 MG TABLET PO SCH ×2 (09:00→17:54)
[2016-12-08] MEDS: ESCITALOPRAM OXALATE (10 MG) 10 MG TABLET PO SCH (09:47)
[2016-12-08] MEDS: HALOPERIDOL LACTATE 10 MG/5 ML UDC PO SCH ×3 (09:49→17:54)
[2016-12-08] MEDS: PYRAZINAMIDE 500 MG TABLET PO SCH (09:49)
[2016-12-08] MEDS: ETHAMBUTOL HCL (400 MG) 400 MG TABLET PO SCH ×3 (09:49→17:54)
[2016-12-08] MEDS: PYRIDOXINE HCL 50 MG TABLET PO SCH (09:49)
[2016-12-08] MEDS: ISONIAZID (300 MG) 300 MG TABLET PO SCH (09:49)
[2016-12-08] MEDS: RIFAMPIN 300 MG CAPSULE PO SCH (09:49)
[2016-12-08] MEDS: BLOOD SUGAR DIAGNOSTIC 1 EACH STRIP VI SCH ×4 (09:50→21:18)
[2016-12-08 16:13] VITALS: BP 99/58
[2016-12-08] MEDS: INSULIN REGULAR, HUMAN 100 UNIT/ML 3 ML VIAL SQ PRN (18:13)
[2016-12-08 20:02] VITALS: BP 107/72
[2016-12-09 07:27] LABS: CALCIUM, SERUM 8.8 mg/dL (8.5-10.1); CREATININE 0.8 mg/dL (0.6-1.3); PHOSPHORUS 2.4 mg/dL (2.5-4.9)
[2016-12-09 07:30] LABS: ALBUMIN 3.3 g/dL (3.4-5.0); BILIRUBIN,DIRECT 0.2 mg/dL (0.0-0.2); BILIRUBIN,TOTAL 0.5 mg/dL (0.2-1.0); INDIRECT BILIRUBIN 0.3 mg/dL (0.0-1.1); TOTAL PROTEIN, SERUM 6.2 g/dL (6.4-8.2)
[2016-12-09 07:42] LABS: POTASSIUM 2.8 mmol/L (3.5-5.1)
[2016-12-09 07:58] LABS: BASOPHILS % (AUTO) 0.9 % (0.0-2.0); DIFF TOTAL % 100 %; EOSINOPHILS # (AUTO) 0.1 /CMM (0.0-0.7); EOSINOPHILS % (AUTO) 1.9 % (0.0-6.0); HEMATOCRIT 36 % (39-51); HEMOGLOBIN 12.1 g/dL (13.5-17.5); LYMPHOCYTES # (AUTO) 1.2 /CMM (0.8-4.8); LYMPHOCYTES % (AUTO) 29.9 % (20.0-44.0); MEAN CORPUSCULAR HEMOGLOBIN 32 PG (26.0-33.0); MEAN CORPUSCULAR HGB CONC 34 g/dl (31.0-36.0); MEAN CORPUSCULAR VOLUME 95 fL (80-96); MONOCYTES # (AUTO) 0.5 /CMM (0.1-1.30); MONOCYTES % (AUTO) 12.3 % (2.0-12.0); NEUTROPHILS # (AUTO) 2.1 /CMM (1.8-8.9); PLATELET COUNT (AUTO) 285 /CMM (150-450); RED BLOOD CELL COUNT(AUTO) 3.78 MIL/uL (4.5-6.0); WHITE BLOOD COUNT (AUTO) 3.9 K/uL (4.3-11.0)
[2016-12-09 08:00] VITALS: BP 104/47
[2016-12-09] MEDS: BLOOD SUGAR DIAGNOSTIC 1 EACH STRIP VI SCH ×4 (08:27→21:55)
[2016-12-09] MEDS: METFORMIN 500 MG TABLET PO SCH ×2 (08:27→16:58)
[2016-12-09] MEDS: ISONIAZID (300 MG) 300 MG TABLET PO SCH (08:28)
[2016-12-09] MEDS: ESCITALOPRAM OXALATE (10 MG) 10 MG TABLET PO SCH (08:28)
[2016-12-09] MEDS: PYRAZINAMIDE 500 MG TABLET PO SCH (08:28)
[2016-12-09] MEDS: HALOPERIDOL LACTATE 10 MG/5 ML UDC PO SCH ×3 (08:28→16:58)
[2016-12-09] MEDS: PYRIDOXINE HCL 50 MG TABLET PO SCH (08:28)
[2016-12-09] MEDS: RIFAMPIN 300 MG CAPSULE PO SCH (08:28)
[2016-12-09] MEDS: ETHAMBUTOL HCL (400 MG) 400 MG TABLET PO SCH ×2 (08:28→12:49)
[2016-12-09] MEDS: BOOST GLUCOSE CONTROL VANILLA 237 ML BOX PO SCH ×3 (08:29→16:58)
[2016-12-09] MEDS: POTASSIUM CHLORIDE 20 MEQ TAB.PRT.SR PO ONE ×2 (09:01→09:30)
[2016-12-09 16:00] VITALS: BP 107/70
[2016-12-09] MEDS ORDERED: K PHOS NEUTRAL 250 MG TABLET PO ONE (17:00)
[2016-12-09] MEDS: INSULIN REGULAR, HUMAN 100 UNIT/ML 3 ML VIAL SQ PRN (17:37)
[2016-12-09 20:12] VITALS: BP 96/54
[2016-12-10] MEDS: BLOOD SUGAR DIAGNOSTIC 1 EACH STRIP VI SCH ×4 (07:30→21:28)
[2016-12-10 08:25] VITALS: BP 111/70
[2016-12-10 08:40] LABS: CALCIUM, SERUM 8.9 mg/dL (8.5-10.1); CREATININE 0.8 mg/dL (0.6-1.3); PHOSPHORUS 2.3 mg/dL (2.5-4.9)
[2016-12-10 08:54] LABS: POTASSIUM 2.8 mmol/L (3.5-5.1)
[2016-12-10] MEDS: PYRIDOXINE HCL 50 MG TABLET PO SCH (09:00)
[2016-12-10] MEDS: RIFAMPIN 300 MG CAPSULE PO SCH (09:00)
[2016-12-10] MEDS: ISONIAZID (300 MG) 300 MG TABLET PO SCH (09:00)
[2016-12-10] MEDS: ESCITALOPRAM OXALATE (10 MG) 10 MG TABLET PO SCH (09:00)
[2016-12-10] MEDS: HALOPERIDOL LACTATE 10 MG/5 ML UDC PO SCH ×3 (09:00→17:00)
[2016-12-10] MEDS: PYRAZINAMIDE 500 MG TABLET PO SCH (09:00)
[2016-12-10] MEDS: ETHAMBUTOL HCL (400 MG) 400 MG TABLET PO SCH (09:00)
[2016-12-10] MEDS: BOOST GLUCOSE CONTROL VANILLA 237 ML BOX PO SCH ×3 (09:00→17:00)
[2016-12-10] MEDS: METFORMIN 500 MG TABLET PO SCH ×2 (09:00→17:00)
[2016-12-10] MEDS: POTASSIUM CHLORIDE 20 MEQ TAB.PRT.SR PO ONE ×2 (11:00→14:00)
[2016-12-10] MEDS ORDERED: K PHOS NEUTRAL 250 MG TABLET PO ONE (13:30)
[2016-12-10 16:00] VITALS: BP 107/76
[2016-12-10] MEDS: INSULIN REGULAR, HUMAN 100 UNIT/ML 3 ML VIAL SQ PRN (18:13)
[2016-12-10 20:09] VITALS: BP 99/64
[2016-12-11] MEDS: BLOOD SUGAR DIAGNOSTIC 1 EACH STRIP VI SCH ×4 (07:21→22:53)
[2016-12-11 07:44] LABS: CALCIUM, SERUM 9.1 mg/dL (8.5-10.1); PHOSPHORUS 2.3 mg/dL (2.5-4.9)
[2016-12-11 07:50] LABS: POTASSIUM 2.6 mmol/L (3.5-5.1)
[2016-12-11 08:00] VITALS: BP 101/71
[2016-12-11] MEDS: HALOPERIDOL LACTATE 10 MG/5 ML UDC PO SCH ×3 (08:21→17:00)
[2016-12-11] MEDS: ETHAMBUTOL HCL (400 MG) 400 MG TABLET PO SCH (08:22)
[2016-12-11] MEDS: RIFAMPIN 300 MG CAPSULE PO SCH (08:22)
[2016-12-11] MEDS: ISONIAZID (300 MG) 300 MG TABLET PO SCH (08:22)
[2016-12-11] MEDS ORDERED: POTASSIUM CHLORIDE 20 MEQ TAB.PRT.SR PO ONE (08:30)
[2016-12-11] MEDS: METFORMIN 500 MG TABLET PO SCH ×2 (09:00→17:00)
[2016-12-11] MEDS: BOOST GLUCOSE CONTROL VANILLA 237 ML BOX PO SCH ×3 (09:00→17:00)
[2016-12-11] MEDS: ESCITALOPRAM OXALATE (10 MG) 10 MG TABLET PO SCH (09:00)
[2016-12-11] MEDS: PYRIDOXINE HCL 50 MG TABLET PO SCH (09:00)
[2016-12-11] MEDS: PYRAZINAMIDE 500 MG TABLET PO SCH (09:00)
[2016-12-11] MEDS: INSULIN REGULAR, HUMAN 100 UNIT/ML 3 ML VIAL SQ PRN (12:18)
[2016-12-11] MEDS ORDERED: K PHOS NEUTRAL 250 MG TABLET PO ONE (15:30)
[2016-12-11 16:00] VITALS: BP 106/71
[2016-12-11] MEDS ORDERED: HALOPERIDOL LACTATE INJ 5 MG/ML VIAL IM SCH (17:00)
[2016-12-11 20:00] VITALS: BP 122/74
[2016-12-11] MEDS: *INSULIN REGULAR(HUMULIN R)HUM 100 UNIT/ML VIAL SQ PRN (22:53)
[2016-12-12 06:57] LABS: CALCIUM, SERUM 9.4 mg/dL (8.5-10.1); PHOSPHORUS 2.5 mg/dL (2.5-4.9)
[2016-12-12 07:34] LABS: POTASSIUM 2.7 mmol/L (3.5-5.1)
[2016-12-12 08:00] VITALS: BP 126/90
[2016-12-12] MEDS: BLOOD SUGAR DIAGNOSTIC 1 EACH STRIP VI SCH ×2 (08:02→12:05)
[2016-12-12] MEDS: HALOPERIDOL LACTATE INJ 5 MG/ML VIAL IM PRN ×2 (08:28→13:15)
[2016-12-12] MEDS ORDERED: POTASSIUM CHLORIDE 20 MEQ TAB.PRT.SR PO ONE (08:30)
[2016-12-12] MEDS: ISONIAZID (300 MG) 300 MG TABLET PO SCH (08:52)
[2016-12-12] MEDS: METFORMIN 500 MG TABLET PO SCH (08:52)
[2016-12-12] MEDS: ESCITALOPRAM OXALATE (10 MG) 10 MG TABLET PO SCH (08:52)
[2016-12-12] MEDS: BOOST GLUCOSE CONTROL VANILLA 237 ML BOX PO SCH ×2 (08:52→13:00)
[2016-12-12] MEDS: HALOPERIDOL LACTATE 10 MG/5 ML UDC PO SCH ×2 (08:52→13:00)
[2016-12-12] MEDS: PYRIDOXINE HCL 50 MG TABLET PO SCH (08:53)
[2016-12-12] MEDS: PYRAZINAMIDE 500 MG TABLET PO SCH (08:53)
[2016-12-12] MEDS: ETHAMBUTOL HCL (400 MG) 400 MG TABLET PO SCH (08:53)
[2016-12-12] MEDS: RIFAMPIN 300 MG CAPSULE PO SCH (08:53)
[2016-12-12] MEDS: POTASSIUM CL. PREMIX PERIPHER. 50 ML IV SCH ×3 (11:30→13:23)
[2016-12-12] MEDS ORDERED: IV NS 0.9% 500 ML IV ONE (11:41)
[2016-12-12] MEDS ORDERED: SECONDARY IV SET 1 EA INFUS.SET MC ONE ×2 (11:41→11:49)
[2016-12-12] MEDS ORDERED: IV SET PRIMARY PUMP SET 1 EA INFUS.SET MC ONE (11:41)
[2016-12-12] MEDS ORDERED: ONDA-25 PO (15:30)
[2016-12-12] MEDS ORDERED: HALO2ORA PO (15:30)
[2016-12-12] MEDS ORDERED: POTA10PI IV (15:30)
[2016-12-12] MEDS ORDERED: TEMA7.5C12 PO (15:30)
[2016-12-12] MEDS ORDERED: ALLA266C2 TP (15:30)
[2016-12-12] MEDS ORDERED: ESCI10TA PO (15:30)
[2016-12-12] MEDS ORDERED: MAG30ORA PO (15:30)
[2016-12-12] MEDS ORDERED: NUT.237L70 PO (15:30)
[2016-12-12] MEDS ORDERED: BLOO-668 IN (15:30)
[2016-12-12] MEDS ORDERED: HALO5VIA12 IM (15:30)
[2016-12-12] MEDS ORDERED: INSU100V3 SQ (15:30)
[2016-12-12] MEDS ORDERED: CLON0.5T4 PO (15:30)
== END 2016-12-12 14:01 | disposition short-term general hospital (02) | DRG 885 ==
LOC: GPS 16:24
PROVIDERS: ADMIT Psychiatry & Neurology Psychiatry
DX: F33.3 Major depressive disorder, recurrent, severe with psychotic symptoms (principal); A15.0 Tuberculosis of lung; E44.0 Moderate protein-calorie malnutrition; F29 Unspecified psychosis not due to a substance or known physiological condition; E11.9 Type 2 diabetes mellitus without complications; E87.6 Hypokalemia; F03.90 Unspecified dementia, unspecified severity, without behavioral disturbance, psychotic disturbance, mood disturbance, and anxiety; I10 Essential (primary) hypertension; J44.9 Chronic obstructive pulmonary disease, unspecified; Z91.19 Patient's noncompliance with other medical treatment and regimen; Z73.6 Limitation of activities due to disability; R74.0 Nonspecific elevation of levels of transaminase and lactic acid dehydrogenase [LDH]; R62.7 Adult failure to thrive; Z68.23 Body mass index [BMI] 23.0-23.9, adult
CPT/HCPCS: 31720; 36415; 71010-TC; 74000-TC; 76700-TC; 80048-TC; 80053-TC; 80076-TC; 82962-TC; 83735-TC; 84100-TC; 84484-TC; 85025-TC; 87081-TC; 87116; 87206; 87556; 94640-TC; A4218; A6402; J1630; J1815; J3480; J3490; J7030; J7040; Q0162

== ENCOUNTER → 2016-11-16 | Emergency (ER) | payer MEDICARE, OTHER ==
[~2016-11-16] MED LIST: ACET-868 PO; ALBU2.5V12 IH; BISA5TAB10 PO; ESOM40CA PO; ETHA400T8 PO; HYDR-552 PO; INSU100V27 SQ; IPRA0.2S49 NEB; IPRA0.2S9 IH; ISON300T27 PO; LACT10SO7 PO; LEVA1.257 IH; LORA1TAB PO; MAGN400O6 PO; METF500T4 PO; POLY17PO4 PO; PYRA500T11 PO; PYRI50TA93 PO; RIFA600V4 PO; SELE5TAB8 PO; ZOLP5TAB2 PO
== END | disposition left against medical advice (07) ==
LOC: ER 16:02
DX: Z53.21 Procedure and treatment not carried out due to patient leaving prior to being seen by health care provider (principal)

== ENCOUNTER 2016-12-12 14:34 | Inpatient (IN) | payer MEDICARE, OTHER ==
[~2016-12-12] VITALS: Ht 165.1 cm; Wt 51.3 kg
[~2016-12-12 14:34] MED LIST changes: -ALBU2.5V12 IH; +ALBU2.5V13 IH; -IPRA0.2S49 NEB; -LORA1TAB PO; -ZOLP5TAB2 PO
[2016-12-12] MEDS ORDERED: POTA10PI IV (15:30)
[2016-12-12] MEDS ORDERED: HALO5VIA12 IM (15:30)
[2016-12-12] MEDS ORDERED: MAG30ORA PO (15:30)
[2016-12-12] MEDS ORDERED: NUT.237L70 PO (15:30)
[2016-12-12] MEDS ORDERED: ONDA-25 PO (15:30)
[2016-12-12] MEDS ORDERED: BLOO-668 IN (15:30)
[2016-12-12] MEDS ORDERED: CLON0.5T4 PO (15:30)
[2016-12-12] MEDS ORDERED: POTASSIUM CHLORIDE 10 MEQ/50 ML PREMIXED IVPB FOR PERIPHERAL LINE IV ONE (15:30)
[2016-12-12] MEDS ORDERED: ESCI10TA PO (15:30)
[2016-12-12] MEDS ORDERED: DEXTROSE 50%-WATER 50 ML DISP.SYRIN IV PRN (15:30)
[2016-12-12] MEDS ORDERED: TEMA7.5C12 PO (15:30)
[2016-12-12] MEDS ORDERED: INSU100V3 SQ (15:30)
[2016-12-12] MEDS ORDERED: ALLA266C2 TP (15:30)
[2016-12-12] MEDS ORDERED: HALO2ORA PO (15:30)
[2016-12-12 16:00] VITALS: BP 115/71
[2016-12-12] MEDS ORDERED: IV SET PRIMARY PUMP SET 1 EA INFUS.SET MC ONE ×3 (16:49→22:47)
[2016-12-12] MEDS ORDERED: IV NS 0.9% 250 ML IV ONE ×2 (16:49→21:59)
[2016-12-12] MEDS ORDERED: SECONDARY IV SET 1 EA INFUS.SET MC ONE (16:49)
[2016-12-12] MEDS: POTASSIUM CL. PREMIX PERIPHER. 50 ML IV SCH ×4 (18:10→22:10)
[2016-12-12] MEDS: BLOOD SUGAR DIAGNOSTIC 1 EACH STRIP VI SCH ×2 (18:10→22:09)
[2016-12-12] MEDS ORDERED: LEVALBUTEROL HCL NEB 1.25 MG/0.5 ML VIAL.NEB IH PRN (19:30)
[2016-12-12] MEDS ORDERED: Z GUARD REMEDY 2 OZ OINT TP PRN (19:30)
[2016-12-12] MEDS ORDERED: MAGNESIUM HYDROXIDE 30 ML UDC PO PRN (19:30)
[2016-12-12] MEDS ORDERED: MAG HYDROX/AL HYDROX/SIMETH 30 ML UDC PO PRN (19:30)
[2016-12-12] MEDS ORDERED: TEMAZEPAM 7.5 MG CAPSULE PO PRN (19:30)
[2016-12-12] MEDS ORDERED: IPRATROPIUM NEB FS 0.5 MG/2.5 ML AMPUL.NEB IH PRN (19:30)
[2016-12-12] MEDS ORDERED: POLYETHYLENE GLYCOL 3350 17 GM POWD.PACK PO PRN (19:30)
[2016-12-12] MEDS ORDERED: ALBUTEROL FS 2.5 MG/0.5 ML VIAL.NEB IH PRN (19:30)
[2016-12-12] MEDS ORDERED: ACETAMINOPHEN 325 MG TABLET PO PRN (19:30)
[2016-12-12] MEDS ORDERED: clonazePAM 0.5 MG TABLET PO PRN (19:30)
[2016-12-12] MEDS ORDERED: ONDANSETRON HCL/PF 4 MG/2 ML VIAL IV PRN (19:30)
[2016-12-12] MEDS ORDERED: BISACODYL (5 MG) 5 MG TABLET.DR PO PRN (19:30)
[2016-12-12] MEDS ORDERED: HYDROCODONE/APAP 5/325MG 1 EACH TABLET PO PRN (19:30)
[2016-12-12 20:00] VITALS: BP 124/64
[2016-12-12] MEDS: POTASSIUM CHLORIDE 10 MEQ/50 ML PREMIXED IVPB FOR PERIPHERAL LINE IV SCH ×4 (20:30→23:07)
[2016-12-12] MEDS ORDERED: BLOOD SUGAR DIAGNOSTIC 1 EACH STRIP IN SCH (22:00)
[2016-12-12] MEDS: HALOPERIDOL LACTATE 10 MG/5 ML UDC PO SCH (22:10)
[2016-12-12] MEDS: *INSULIN REGULAR(HUMULIN R)HUM 100 UNIT/ML VIAL SQ PRN (22:21)
[2016-12-12] MEDS: Potassium Chloride 40 MEQ in IV NS 0.9% 1,000 ML IV PRN (23:05)
[2016-12-13] VITALS: BP 101/69
[2016-12-13 04:00] VITALS: BP 100/72
[2016-12-13] MEDS: INSULIN REGULAR, HUMAN 100 UNIT/ML 3 ML VIAL SQ PRN (06:39)
[2016-12-13] MEDS: BLOOD SUGAR DIAGNOSTIC 1 EACH STRIP VI SCH ×4 (06:39→21:45)
[2016-12-13 08:00] VITALS: BP 117/75
[2016-12-13] MEDS: METFORMIN 500 MG TABLET PO SCH ×2 (08:49→16:49)
[2016-12-13] MEDS: HALOPERIDOL LACTATE 10 MG/5 ML UDC PO SCH ×3 (08:49→16:55)
[2016-12-13] MEDS: ESCITALOPRAM OXALATE (10 MG) 10 MG TABLET PO SCH (08:50)
[2016-12-13] MEDS: PYRIDOXINE HCL 50 MG TABLET PO SCH (08:50)
[2016-12-13] MEDS: PYRAZINAMIDE 500 MG TABLET PO SCH (08:50)
[2016-12-13] MEDS: ISONIAZID (300 MG) 300 MG TABLET PO SCH (08:50)
[2016-12-13] MEDS: ETHAMBUTOL HCL (400 MG) 400 MG TABLET PO SCH (08:51)
[2016-12-13] MEDS: HALOPERIDOL LACTATE INJ 5 MG/ML VIAL IM PRN ×2 (11:53→16:49)
[2016-12-13 12:00] VITALS: BP 87/57
[2016-12-13] MEDS ORDERED: IV SET PRIMARY PUMP SET 1 EA INFUS.SET MC ONE (15:18)
[2016-12-13 16:00] VITALS: BP_SYST 117; BP_DIAS 75; BP_DIAS 77
[2016-12-13] MEDS: Potassium Chloride 40 MEQ in IV NS 0.9% 1,000 ML IV PRN (16:55)
[2016-12-13 20:00] VITALS: BP 123/60
[2016-12-13] MEDS: *INSULIN REGULAR(HUMULIN R)HUM 100 UNIT/ML VIAL SQ PRN (22:15)
[2016-12-14] VITALS: BP 135/69
[2016-12-14 04:00] VITALS: BP 146/62
[2016-12-14] MEDS: Potassium Chloride 40 MEQ in IV NS 0.9% 1,000 ML IV PRN ×2 (04:54→22:27)
[2016-12-14 06:46] LABS: BASOPHILS % (AUTO) 0.8 % (0.0-2.0); DIFF TOTAL % 100 %; EOSINOPHILS # (AUTO) 0.1 /CMM (0.0-0.7); EOSINOPHILS % (AUTO) 2.8 % (0.0-6.0); HEMATOCRIT 33 % (39-51); HEMOGLOBIN 11.1 g/dL (13.5-17.5); LYMPHOCYTES # (AUTO) 1.1 /CMM (0.8-4.8); MEAN CORPUSCULAR HEMOGLOBIN 32 PG (26.0-33.0); MEAN CORPUSCULAR HGB CONC 34 g/dl (31.0-36.0); MEAN CORPUSCULAR VOLUME 96 fL (80-96); MONOCYTES # (AUTO) 0.5 /CMM (0.1-1.30); MONOCYTES % (AUTO) 12.5 % (2.0-12.0); NEUTROPHILS # (AUTO) 2.6 /CMM (1.8-8.9); NEUTROPHILS % (AUTO) 58.9 % (43.0-81.0); PLATELET COUNT (AUTO) 301 /CMM (150-450); RED BLOOD CELL COUNT(AUTO) 3.44 MIL/uL (4.5-6.0); WHITE BLOOD COUNT (AUTO) 4.4 K/uL (4.3-11.0)
[2016-12-14] MEDS: BLOOD SUGAR DIAGNOSTIC 1 EACH STRIP VI SCH ×4 (06:52→21:56)
[2016-12-14 07:15] LABS: ALBUMIN 3.2 g/dL (3.4-5.0); BILIRUBIN,TOTAL 0.6 mg/dL (0.2-1.0); CALCIUM, SERUM 8.5 mg/dL (8.5-10.1); CREATININE 0.8 mg/dL (0.6-1.3); PHOSPHORUS 2.6 mg/dL (2.5-4.9); POTASSIUM 3.4 mmol/L (3.5-5.1); TOTAL PROTEIN, SERUM 6.1 g/dL (6.4-8.2)
[2016-12-14] MEDS: PYRAZINAMIDE 500 MG TABLET PO SCH (09:00)
[2016-12-14] MEDS: HALOPERIDOL LACTATE 10 MG/5 ML UDC PO SCH ×3 (09:00→17:20)
[2016-12-14] MEDS: ISONIAZID (300 MG) 300 MG TABLET PO SCH (09:00)
[2016-12-14] MEDS: ETHAMBUTOL HCL (400 MG) 400 MG TABLET PO SCH (09:00)
[2016-12-14] MEDS: ESCITALOPRAM OXALATE (10 MG) 10 MG TABLET PO SCH (09:00)
[2016-12-14] MEDS: METFORMIN 500 MG TABLET PO SCH ×2 (09:00→17:00)
[2016-12-14] MEDS: PYRIDOXINE HCL 50 MG TABLET PO SCH (09:00)
[2016-12-14] MEDS: HALOPERIDOL LACTATE INJ 5 MG/ML VIAL IM PRN ×2 (09:39→13:02)
[2016-12-14] MEDS ORDERED: SECONDARY IV SET 1 EA INFUS.SET MC ONE (12:08)
[2016-12-14] MEDS: Magnesium 1GM/D5W 100ML PREMIX 100 ML IV SCH ×2 (12:12→13:48)
[2016-12-14 16:00] VITALS: BP 118/67
[2016-12-15] MEDS: Potassium Chloride 40 MEQ in IV NS 0.9% 1,000 ML IV PRN (05:30)
[2016-12-15] MEDS: BLOOD SUGAR DIAGNOSTIC 1 EACH STRIP VI SCH ×4 (06:58→21:43)
[2016-12-15 07:40] LABS: CALCIUM, SERUM 8.5 mg/dL (8.5-10.1); CREATININE 0.8 mg/dL (0.6-1.3); POTASSIUM 3.6 mmol/L (3.5-5.1)
[2016-12-15 08:00] VITALS: BP 101/59
[2016-12-15] MEDS: METFORMIN 500 MG TABLET PO SCH ×2 (09:00→17:00)
[2016-12-15] MEDS: HALOPERIDOL LACTATE 10 MG/5 ML UDC PO SCH ×3 (09:00→17:00)
[2016-12-15] MEDS: ISONIAZID (300 MG) 300 MG TABLET PO SCH (09:00)
[2016-12-15] MEDS: ETHAMBUTOL HCL (400 MG) 400 MG TABLET PO SCH (09:00)
[2016-12-15] MEDS: PYRAZINAMIDE 500 MG TABLET PO SCH (09:00)
[2016-12-15] MEDS: PYRIDOXINE HCL 50 MG TABLET PO SCH (09:00)
[2016-12-15] MEDS: ESCITALOPRAM OXALATE (10 MG) 10 MG TABLET PO SCH (09:00)
[2016-12-15 12:00] VITALS: BP 94/56
[2016-12-15 16:00] VITALS: BP 101/68
[2016-12-15 19:26] VITALS: BP 101/68
[2016-12-15 20:00] VITALS: BP 120/61
[2016-12-16] VITALS: BP 105/86
[2016-12-16 04:00] VITALS: BP 107/55
[2016-12-16] MEDS: BLOOD SUGAR DIAGNOSTIC 1 EACH STRIP VI SCH ×4 (05:57→21:00)
[2016-12-16 08:00] VITALS: BP 107/65
[2016-12-16] MEDS: HALOPERIDOL LACTATE 10 MG/5 ML UDC PO SCH ×4 (08:41→16:32)
[2016-12-16] MEDS: METFORMIN 500 MG TABLET PO SCH ×2 (08:41→16:32)
[2016-12-16] MEDS: PYRAZINAMIDE 500 MG TABLET PO SCH (08:41)
[2016-12-16] MEDS: ISONIAZID (300 MG) 300 MG TABLET PO SCH (08:41)
[2016-12-16] MEDS: PYRIDOXINE HCL 50 MG TABLET PO SCH (08:41)
[2016-12-16] MEDS: ESCITALOPRAM OXALATE (10 MG) 10 MG TABLET PO SCH (08:41)
[2016-12-16] MEDS: ETHAMBUTOL HCL (400 MG) 400 MG TABLET PO SCH (08:41)
[2016-12-16 12:00] VITALS: BP 105/70
[2016-12-16 16:00] VITALS: BP 103/56
[2016-12-16 20:00] VITALS: BP 110/74
[2016-12-16] MEDS: *INSULIN REGULAR(HUMULIN R)HUM 100 UNIT/ML VIAL SQ PRN (23:51)
[2016-12-17] MEDS: BLOOD SUGAR DIAGNOSTIC 1 EACH STRIP VI SCH ×4 (06:45→22:52)
[2016-12-17] MEDS: *INSULIN REGULAR(HUMULIN R)HUM 100 UNIT/ML VIAL SQ PRN (06:45)
[2016-12-17 08:00] VITALS: BP 118/70
[2016-12-17] MEDS: METFORMIN 500 MG TABLET PO SCH ×2 (09:00→17:00)
[2016-12-17] MEDS: HALOPERIDOL LACTATE 10 MG/5 ML UDC PO SCH ×3 (09:00→17:00)
[2016-12-17] MEDS: PYRAZINAMIDE 500 MG TABLET PO SCH (09:00)
[2016-12-17] MEDS: PYRIDOXINE HCL 50 MG TABLET PO SCH (09:00)
[2016-12-17] MEDS: ETHAMBUTOL HCL (400 MG) 400 MG TABLET PO SCH (09:00)
[2016-12-17] MEDS: ISONIAZID (300 MG) 300 MG TABLET PO SCH (09:00)
[2016-12-17] MEDS: ESCITALOPRAM OXALATE (10 MG) 10 MG TABLET PO SCH (09:00)
[2016-12-17 16:00] VITALS: BP 101/68
[2016-12-18 07:22] LABS: BASOPHILS % (AUTO) 0.6 % (0.0-2.0); DIFF TOTAL % 100 %; EOSINOPHILS # (AUTO) 0.1 /CMM (0.0-0.7); EOSINOPHILS % (AUTO) 2.5 % (0.0-6.0); HEMATOCRIT 35 % (39-51); HEMOGLOBIN 11.5 g/dL (13.5-17.5); LYMPHOCYTES # (AUTO) 1.1 /CMM (0.8-4.8); LYMPHOCYTES % (AUTO) 18.7 % (20.0-44.0); MEAN CORPUSCULAR HEMOGLOBIN 32 PG (26.0-33.0); MEAN CORPUSCULAR HGB CONC 33 g/dl (31.0-36.0); MEAN CORPUSCULAR VOLUME 98 fL (80-96); MONOCYTES # (AUTO) 0.5 /CMM (0.1-1.30); MONOCYTES % (AUTO) 9.3 % (2.0-12.0); NEUTROPHILS # (AUTO) 4.1 /CMM (1.8-8.9); NEUTROPHILS % (AUTO) 68.9 % (43.0-81.0); PLATELET COUNT (AUTO) 314 /CMM (150-450); RED BLOOD CELL COUNT(AUTO) 3.57 MIL/uL (4.5-6.0); WHITE BLOOD COUNT (AUTO) 5.9 K/uL (4.3-11.0)
[2016-12-18] MEDS: BLOOD SUGAR DIAGNOSTIC 1 EACH STRIP VI SCH ×4 (07:30→23:09)
[2016-12-18 08:07] LABS: CALCIUM, SERUM 8.9 mg/dL (8.5-10.1); POTASSIUM 3.4 mmol/L (3.5-5.1)
[2016-12-18] MEDS: PYRAZINAMIDE 500 MG TABLET PO SCH (09:00)
[2016-12-18] MEDS: PYRIDOXINE HCL 50 MG TABLET PO SCH (09:00)
[2016-12-18] MEDS: HALOPERIDOL LACTATE 10 MG/5 ML UDC PO SCH ×3 (09:00→17:00)
[2016-12-18] MEDS: ESCITALOPRAM OXALATE (10 MG) 10 MG TABLET PO SCH (09:00)
[2016-12-18] MEDS: ETHAMBUTOL HCL (400 MG) 400 MG TABLET PO SCH (09:00)
[2016-12-18] MEDS: ISONIAZID (300 MG) 300 MG TABLET PO SCH (09:00)
[2016-12-18] MEDS: METFORMIN 500 MG TABLET PO SCH ×2 (09:00→17:00)
[2016-12-18 20:00] VITALS: BP 97/56
[2016-12-18] MEDS: *INSULIN REGULAR(HUMULIN R)HUM 100 UNIT/ML VIAL SQ PRN (23:09)
[2016-12-19] MEDS: BLOOD SUGAR DIAGNOSTIC 1 EACH STRIP VI SCH ×4 (06:11→22:07)
[2016-12-19] MEDS: INSULIN REGULAR, HUMAN 100 UNIT/ML 3 ML VIAL SQ PRN (06:12)
[2016-12-19 08:00] VITALS: BP 90/60
[2016-12-19 08:49] LABS: BASOPHILS % (AUTO) 0.6 % (0.0-2.0); DIFF TOTAL % 100 %; EOSINOPHILS # (AUTO) 0.2 /CMM (0.0-0.7); EOSINOPHILS % (AUTO) 3.4 % (0.0-6.0); HEMATOCRIT 37 % (39-51); HEMOGLOBIN 12.5 g/dL (13.5-17.5); LYMPHOCYTES # (AUTO) 1.1 /CMM (0.8-4.8); LYMPHOCYTES % (AUTO) 22.3 % (20.0-44.0); MEAN CORPUSCULAR HEMOGLOBIN 33 PG (26.0-33.0); MEAN CORPUSCULAR HGB CONC 34 g/dl (31.0-36.0); MEAN CORPUSCULAR VOLUME 98 fL (80-96); MONOCYTES # (AUTO) 0.4 /CMM (0.1-1.30); MONOCYTES % (AUTO) 9.1 % (2.0-12.0); NEUTROPHILS # (AUTO) 3.1 /CMM (1.8-8.9); NEUTROPHILS % (AUTO) 64.6 % (43.0-81.0); PLATELET COUNT (AUTO) 328 /CMM (150-450); RED BLOOD CELL COUNT(AUTO) 3.82 MIL/uL (4.5-6.0); WHITE BLOOD COUNT (AUTO) 4.8 K/uL (4.3-11.0)
[2016-12-19] MEDS: HALOPERIDOL LACTATE 10 MG/5 ML UDC PO SCH ×3 (09:00→17:16)
[2016-12-19] MEDS: METFORMIN 500 MG TABLET PO SCH ×2 (09:00→17:00)
[2016-12-19] MEDS: PYRIDOXINE HCL 50 MG TABLET PO SCH (09:00)
[2016-12-19] MEDS: ESCITALOPRAM OXALATE (10 MG) 10 MG TABLET PO SCH (09:00)
[2016-12-19] MEDS: ISONIAZID (300 MG) 300 MG TABLET PO SCH (09:00)
[2016-12-19] MEDS: PYRAZINAMIDE 500 MG TABLET PO SCH (09:00)
[2016-12-19] MEDS: ETHAMBUTOL HCL (400 MG) 400 MG TABLET PO SCH (09:00)
[2016-12-19 09:02] LABS: POTASSIUM 3.4 mmol/L (3.5-5.1)
[2016-12-19] MEDS: HALOPERIDOL LACTATE INJ 5 MG/ML VIAL IM PRN ×2 (09:12→14:19)
[2016-12-19 09:21] LABS: CREATININE 0.9 mg/dL (0.6-1.3)
[2016-12-19 16:00] VITALS: BP 96/66
[2016-12-19] MEDS: GLYTROL 1,000 ML BAG GT PRN (17:15)
[2016-12-19 20:00] VITALS: BP 106/58
[2016-12-19] MEDS: *INSULIN REGULAR(HUMULIN R)HUM 100 UNIT/ML VIAL SQ PRN (23:03)
[2016-12-20] MEDS: BLOOD SUGAR DIAGNOSTIC 1 EACH STRIP VI SCH ×4 (07:29→22:23)
[2016-12-20 07:42] LABS: BASOPHILS % (AUTO) 0.3 % (0.0-2.0); DIFF TOTAL % 100 %; EOSINOPHILS # (AUTO) 0.1 /CMM (0.0-0.7); EOSINOPHILS % (AUTO) 2.5 % (0.0-6.0); HEMATOCRIT 38 % (39-51); HEMOGLOBIN 12.6 g/dL (13.5-17.5); LYMPHOCYTES # (AUTO) 1.1 /CMM (0.8-4.8); LYMPHOCYTES % (AUTO) 22.4 % (20.0-44.0); MEAN CORPUSCULAR HEMOGLOBIN 33 PG (26.0-33.0); MEAN CORPUSCULAR HGB CONC 34 g/dl (31.0-36.0); MEAN CORPUSCULAR VOLUME 97 fL (80-96); MONOCYTES # (AUTO) 0.4 /CMM (0.1-1.30); MONOCYTES % (AUTO) 7.9 % (2.0-12.0); NEUTROPHILS # (AUTO) 3.1 /CMM (1.8-8.9); NEUTROPHILS % (AUTO) 66.9 % (43.0-81.0); PLATELET COUNT (AUTO) 356 /CMM (150-450); RED BLOOD CELL COUNT(AUTO) 3.86 MIL/uL (4.5-6.0); WHITE BLOOD COUNT (AUTO) 4.7 K/uL (4.3-11.0)
[2016-12-20 08:00] VITALS: BP 100/66
[2016-12-20 08:02] LABS: CALCIUM, SERUM 9.4 mg/dL (8.5-10.1); POTASSIUM 3.1 mmol/L (3.5-5.1)
[2016-12-20] MEDS: METFORMIN 500 MG TABLET PO SCH ×2 (09:03→18:01)
[2016-12-20] MEDS: ESCITALOPRAM OXALATE (10 MG) 10 MG TABLET PO SCH (09:03)
[2016-12-20] MEDS: PYRIDOXINE HCL 50 MG TABLET PO SCH (09:03)
[2016-12-20] MEDS: ISONIAZID (300 MG) 300 MG TABLET PO SCH (09:03)
[2016-12-20] MEDS: PYRAZINAMIDE 500 MG TABLET PO SCH (09:04)
[2016-12-20] MEDS: ETHAMBUTOL HCL (400 MG) 400 MG TABLET PO SCH (09:04)
[2016-12-20] MEDS: HALOPERIDOL LACTATE 10 MG/5 ML UDC PO SCH ×3 (09:05→18:01)
[2016-12-20] MEDS: INSULIN REGULAR, HUMAN 100 UNIT/ML 3 ML VIAL SQ PRN (11:57)
[2016-12-20] MEDS: Potassium Chloride 40 MEQ in IV NS 0.9% 1,000 ML IV PRN (13:48)
[2016-12-20 20:00] VITALS: BP 95/60
[2016-12-20] MEDS: *INSULIN REGULAR(HUMULIN R)HUM 100 UNIT/ML VIAL SQ PRN (22:39)
[2016-12-21] MEDS: GLYTROL 1,000 ML BAG GT PRN (00:34)
[2016-12-21] MEDS: Potassium Chloride 40 MEQ in IV NS 0.9% 1,000 ML IV PRN (01:57)
[2016-12-21] MEDS: BLOOD SUGAR DIAGNOSTIC 1 EACH STRIP VI SCH ×4 (05:47→23:12)
[2016-12-21] MEDS: INSULIN REGULAR, HUMAN 100 UNIT/ML 3 ML VIAL SQ PRN (05:52)
[2016-12-21 06:00] VITALS: BP 108/66
[2016-12-21 08:11] LABS: BASOPHILS % (AUTO) 0.2 % (0.0-2.0); DIFF TOTAL % 100 %; EOSINOPHILS # (AUTO) 0.2 /CMM (0.0-0.7); EOSINOPHILS % (AUTO) 3.2 % (0.0-6.0); HEMATOCRIT 37 % (39-51); HEMOGLOBIN 12.2 g/dL (13.5-17.5); LYMPHOCYTES # (AUTO) 1.4 /CMM (0.8-4.8); LYMPHOCYTES % (AUTO) 29.7 % (20.0-44.0); MEAN CORPUSCULAR HEMOGLOBIN 32 PG (26.0-33.0); MEAN CORPUSCULAR HGB CONC 33 g/dl (31.0-36.0); MEAN CORPUSCULAR VOLUME 98 fL (80-96); MONOCYTES # (AUTO) 0.4 /CMM (0.1-1.30); MONOCYTES % (AUTO) 8.3 % (2.0-12.0); NEUTROPHILS # (AUTO) 2.8 /CMM (1.8-8.9); NEUTROPHILS % (AUTO) 58.6 % (43.0-81.0); PLATELET COUNT (AUTO) 350 /CMM (150-450); RED BLOOD CELL COUNT(AUTO) 3.78 MIL/uL (4.5-6.0); WHITE BLOOD COUNT (AUTO) 4.7 K/uL (4.3-11.0)
[2016-12-21 09:00] LABS: CALCIUM, SERUM 9.7 mg/dL (8.5-10.1); POTASSIUM 5.5 mmol/L (3.5-5.1)
[2016-12-21] MEDS: HALOPERIDOL LACTATE 10 MG/5 ML UDC PO SCH ×2 (09:00→16:07)
[2016-12-21] MEDS: ETHAMBUTOL HCL (400 MG) 400 MG TABLET PO SCH (09:00)
[2016-12-21] MEDS: PYRIDOXINE HCL 50 MG TABLET PO SCH (09:00)
[2016-12-21] MEDS: METFORMIN 500 MG TABLET PO SCH (09:00)
[2016-12-21] MEDS: PYRAZINAMIDE 500 MG TABLET PO SCH (09:00)
[2016-12-21] MEDS: ESCITALOPRAM OXALATE (10 MG) 10 MG TABLET PO SCH (09:00)
[2016-12-21] MEDS: ISONIAZID (300 MG) 300 MG TABLET PO SCH (09:00)
[2016-12-21 20:00] VITALS: BP 120/68
[2016-12-22] MEDS ORDERED: IOHEXOL-350 100 ML VIAL IV ONE (00:25)
[2016-12-22] MEDS ORDERED: IV NS 0.9% 250 ML IV ONE (00:25)
[2016-12-22] MEDS ORDERED: DIATR MEGLU/DIATRIZOATE SODIUM 30 ML BOTTLE (GASTROGRAPHIN) ONE (00:26)
[2016-12-22 06:57] LABS: BASOPHILS % (AUTO) 0.6 % (0.0-2.0); DIFF TOTAL % 100 %; EOSINOPHILS # (AUTO) 0.1 /CMM (0.0-0.7); EOSINOPHILS % (AUTO) 2.5 % (0.0-6.0); HEMATOCRIT 36 % (39-51); HEMOGLOBIN 12.1 g/dL (13.5-17.5); LYMPHOCYTES # (AUTO) 1.6 /CMM (0.8-4.8); LYMPHOCYTES % (AUTO) 30.3 % (20.0-44.0); MEAN CORPUSCULAR HEMOGLOBIN 33 PG (26.0-33.0); MEAN CORPUSCULAR HGB CONC 34 g/dl (31.0-36.0); MEAN CORPUSCULAR VOLUME 97 fL (80-96); MONOCYTES # (AUTO) 0.5 /CMM (0.1-1.30); NEUTROPHILS # (AUTO) 3.1 /CMM (1.8-8.9); NEUTROPHILS % (AUTO) 57.6 % (43.0-81.0); PLATELET COUNT (AUTO) 334 /CMM (150-450); RED BLOOD CELL COUNT(AUTO) 3.71 MIL/uL (4.5-6.0); WHITE BLOOD COUNT (AUTO) 5.3 K/uL (4.3-11.0)
[2016-12-22 07:26] LABS: CREATININE 0.9 mg/dL (0.6-1.3); PHOSPHORUS 3.1 mg/dL (2.5-4.9); POTASSIUM 3.6 mmol/L (3.5-5.1)
[2016-12-22] MEDS: BLOOD SUGAR DIAGNOSTIC 1 EACH STRIP VI SCH ×4 (07:30→22:38)
[2016-12-22 08:00] VITALS: BP 122/72
[2016-12-22] MEDS: PYRAZINAMIDE 500 MG TABLET PO SCH (09:00)
[2016-12-22] MEDS: ISONIAZID (300 MG) 300 MG TABLET PO SCH (09:00)
[2016-12-22] MEDS: ESCITALOPRAM OXALATE (10 MG) 10 MG TABLET PO SCH (09:00)
[2016-12-22] MEDS: ETHAMBUTOL HCL (400 MG) 400 MG TABLET PO SCH (09:00)
[2016-12-22] MEDS: HALOPERIDOL LACTATE 10 MG/5 ML UDC PO SCH ×3 (09:00→17:00)
[2016-12-22] MEDS: PYRIDOXINE HCL 50 MG TABLET PO SCH (09:00)
[2016-12-22] MEDS: METFORMIN 500 MG TABLET PO SCH ×2 (09:00→17:00)
[2016-12-22] MEDS ORDERED: DIATR MEGLU/DIATRIZOATE SODIUM 120 ML BOTTLE (GASTROGRAPHIN) ONE (10:46)
[2016-12-22] MEDS ORDERED: BARIUM SULFATE 98% 135 ML SUSP.RECON PO ONE (10:46)
[2016-12-22 16:00] VITALS: BP 108/69
[2016-12-22 20:00] VITALS: BP 108/84
[2016-12-23] MEDS: BLOOD SUGAR DIAGNOSTIC 1 EACH STRIP VI SCH ×4 (07:07→21:53)
[2016-12-23 08:00] VITALS: BP 102/61
[2016-12-23 08:16] LABS: CALCIUM, SERUM 9.1 mg/dL (8.5-10.1); CREATININE 0.9 mg/dL (0.6-1.3); POTASSIUM 3.3 mmol/L (3.5-5.1)
[2016-12-23 08:32] LABS: BASOPHILS % (AUTO) 0.7 % (0.0-2.0); DIFF TOTAL % 100 %; EOSINOPHILS # (AUTO) 0.2 /CMM (0.0-0.7); EOSINOPHILS % (AUTO) 3.4 % (0.0-6.0); HEMATOCRIT 37 % (39-51); HEMOGLOBIN 12.5 g/dL (13.5-17.5); LYMPHOCYTES # (AUTO) 1.2 /CMM (0.8-4.8); LYMPHOCYTES % (AUTO) 24.1 % (20.0-44.0); MEAN CORPUSCULAR HEMOGLOBIN 33 PG (26.0-33.0); MEAN CORPUSCULAR HGB CONC 34 g/dl (31.0-36.0); MEAN CORPUSCULAR VOLUME 97 fL (80-96); MONOCYTES # (AUTO) 0.4 /CMM (0.1-1.30); NEUTROPHILS # (AUTO) 3.1 /CMM (1.8-8.9); NEUTROPHILS % (AUTO) 62.8 % (43.0-81.0); PLATELET COUNT (AUTO) 365 /CMM (150-450); RED BLOOD CELL COUNT(AUTO) 3.84 MIL/uL (4.5-6.0); WHITE BLOOD COUNT (AUTO) 4.9 K/uL (4.3-11.0)
[2016-12-23] MEDS: ETHAMBUTOL HCL (400 MG) 400 MG TABLET PO SCH (09:00)
[2016-12-23] MEDS: ISONIAZID (300 MG) 300 MG TABLET PO SCH (09:00)
[2016-12-23] MEDS: METFORMIN 500 MG TABLET PO SCH ×2 (09:00→17:00)
[2016-12-23] MEDS: PYRAZINAMIDE 500 MG TABLET PO SCH (09:00)
[2016-12-23] MEDS: HALOPERIDOL LACTATE 10 MG/5 ML UDC PO SCH ×3 (09:00→17:00)
[2016-12-23] MEDS: PYRIDOXINE HCL 50 MG TABLET PO SCH (09:00)
[2016-12-23] MEDS: POTASSIUM CL. PREMIX PERIPHER. 50 ML IV SCH ×2 (10:00→15:12)
[2016-12-23] MEDS ORDERED: SECONDARY IV SET 1 EA INFUS.SET MC ONE (14:24)
[2016-12-23] MEDS ORDERED: IV SET PRIMARY PUMP SET 1 EA INFUS.SET MC ONE ×3 (14:41→15:01)
[2016-12-23] MEDS ORDERED: IV NS 0.9% 250 ML IV ONE (14:54)
[2016-12-23 16:00] VITALS: BP 98/59
[2016-12-23 20:00] VITALS: BP 99/67
[2016-12-23] MEDS: MIRTAZAPINE 15 MG TABLET PO SCH (21:35)
[2016-12-24] MEDS: BLOOD SUGAR DIAGNOSTIC 1 EACH STRIP VI SCH ×4 (06:25→23:52)
[2016-12-24 07:38] LABS: BASOPHILS % (AUTO) 0.6 % (0.0-2.0); DIFF TOTAL % 100 %; EOSINOPHILS # (AUTO) 0.2 /CMM (0.0-0.7); EOSINOPHILS % (AUTO) 3.9 % (0.0-6.0); HEMATOCRIT 39 % (39-51); HEMOGLOBIN 13.1 g/dL (13.5-17.5); LYMPHOCYTES # (AUTO) 1.2 /CMM (0.8-4.8); LYMPHOCYTES % (AUTO) 24.1 % (20.0-44.0); MEAN CORPUSCULAR HEMOGLOBIN 32 PG (26.0-33.0); MEAN CORPUSCULAR HGB CONC 33 g/dl (31.0-36.0); MEAN CORPUSCULAR VOLUME 98 fL (80-96); MONOCYTES # (AUTO) 0.5 /CMM (0.1-1.30); MONOCYTES % (AUTO) 9.5 % (2.0-12.0); NEUTROPHILS # (AUTO) 3.1 /CMM (1.8-8.9); NEUTROPHILS % (AUTO) 61.9 % (43.0-81.0); PLATELET COUNT (AUTO) 385 /CMM (150-450); RED BLOOD CELL COUNT(AUTO) 4.04 MIL/uL (4.5-6.0); WHITE BLOOD COUNT (AUTO) 5.1 K/uL (4.3-11.0)
[2016-12-24 07:47] LABS: CALCIUM, SERUM 9.1 mg/dL (8.5-10.1); CREATININE 0.9 mg/dL (0.6-1.3); POTASSIUM 3.5 mmol/L (3.5-5.1)
[2016-12-24 08:31] VITALS: BP 100/67
[2016-12-24] MEDS: ETHAMBUTOL HCL (400 MG) 400 MG TABLET PO SCH (09:00)
[2016-12-24] MEDS: PYRIDOXINE HCL 50 MG TABLET PO SCH (09:00)
[2016-12-24] MEDS: METFORMIN 500 MG TABLET PO SCH ×2 (09:00→17:00)
[2016-12-24] MEDS: ISONIAZID (300 MG) 300 MG TABLET PO SCH (09:00)
[2016-12-24] MEDS: HALOPERIDOL LACTATE 10 MG/5 ML UDC PO SCH ×3 (09:00→17:00)
[2016-12-24] MEDS: PYRAZINAMIDE 500 MG TABLET PO SCH (09:00)
[2016-12-24] MEDS ORDERED: IV SET PRIMARY PUMP SET 1 EA INFUS.SET MC ONE (14:13)
[2016-12-24] MEDS ORDERED: IV D5/ 0.9% NACL 1,000 ML IV ONE (14:14)
[2016-12-24] MEDS: *INSULIN REGULAR(HUMULIN R)HUM 100 UNIT/ML VIAL SQ PRN (15:11)
[2016-12-24 16:00] VITALS: BP 98/66
[2016-12-24] MEDS: MIRTAZAPINE 15 MG TABLET PO SCH (22:00)
[2016-12-25] MEDS ORDERED: IV D5/ 0.9% NACL 1,000 ML IV ONE (03:26)
[2016-12-25] MEDS: IV D5/ 0.9% NACL 1,000 ML IV PRN (03:31)
[2016-12-25] MEDS: BLOOD SUGAR DIAGNOSTIC 1 EACH STRIP VI SCH ×4 (06:42→21:17)
[2016-12-25 07:52] LABS: BASOPHILS % (AUTO) 0.5 % (0.0-2.0); DIFF TOTAL % 100 %; EOSINOPHILS # (AUTO) 0.2 /CMM (0.0-0.7); EOSINOPHILS % (AUTO) 4.1 % (0.0-6.0); HEMATOCRIT 36 % (39-51); HEMOGLOBIN 12.1 g/dL (13.5-17.5); LYMPHOCYTES # (AUTO) 1.3 /CMM (0.8-4.8); LYMPHOCYTES % (AUTO) 25.9 % (20.0-44.0); MEAN CORPUSCULAR HEMOGLOBIN 33 PG (26.0-33.0); MEAN CORPUSCULAR HGB CONC 33 g/dl (31.0-36.0); MEAN CORPUSCULAR VOLUME 98 fL (80-96); MONOCYTES # (AUTO) 0.5 /CMM (0.1-1.30); MONOCYTES % (AUTO) 10.5 % (2.0-12.0); PLATELET COUNT (AUTO) 348 /CMM (150-450); RED BLOOD CELL COUNT(AUTO) 3.71 MIL/uL (4.5-6.0); WHITE BLOOD COUNT (AUTO) 5.1 K/uL (4.3-11.0)
[2016-12-25 07:54] LABS: CALCIUM, SERUM 8.4 mg/dL (8.5-10.1); CREATININE 0.9 mg/dL (0.6-1.3)
[2016-12-25] MEDS: ETHAMBUTOL HCL (400 MG) 400 MG TABLET PO SCH (08:08)
[2016-12-25] MEDS: HALOPERIDOL LACTATE 10 MG/5 ML UDC PO SCH ×3 (08:08→17:00)
[2016-12-25] MEDS: METFORMIN 500 MG TABLET PO SCH ×2 (08:08→17:00)
[2016-12-25] MEDS: ISONIAZID (300 MG) 300 MG TABLET PO SCH (08:08)
[2016-12-25] MEDS: PYRAZINAMIDE 500 MG TABLET PO SCH (08:09)
[2016-12-25] MEDS: PYRIDOXINE HCL 50 MG TABLET PO SCH (08:09)
[2016-12-25] MEDS: POTASSIUM CL. PREMIX PERIPHER. 50 ML IV SCH ×6 (13:00→17:55)
[2016-12-25 20:00] VITALS: BP 122/69
[2016-12-25] MEDS: MIRTAZAPINE 15 MG TABLET PO SCH (21:07)
[2016-12-26] MEDS: IV D5/ 0.9% NACL 1,000 ML IV PRN ×2 (05:17→20:10)
[2016-12-26] MEDS: BLOOD SUGAR DIAGNOSTIC 1 EACH STRIP VI SCH ×4 (05:33→22:48)
[2016-12-26] MEDS: INSULIN REGULAR, HUMAN 100 UNIT/ML 3 ML VIAL SQ PRN (05:33)
[2016-12-26 07:49] LABS: BASOPHILS % (AUTO) 0.6 % (0.0-2.0); DIFF TOTAL % 100 %; EOSINOPHILS # (AUTO) 0.2 /CMM (0.0-0.7); EOSINOPHILS % (AUTO) 4.1 % (0.0-6.0); HEMATOCRIT 40 % (39-51); HEMOGLOBIN 13.3 g/dL (13.5-17.5); LYMPHOCYTES # (AUTO) 1.3 /CMM (0.8-4.8); LYMPHOCYTES % (AUTO) 26.8 % (20.0-44.0); MEAN CORPUSCULAR HEMOGLOBIN 33 PG (26.0-33.0); MEAN CORPUSCULAR HGB CONC 34 g/dl (31.0-36.0); MEAN CORPUSCULAR VOLUME 97 fL (80-96); MONOCYTES # (AUTO) 0.4 /CMM (0.1-1.30); MONOCYTES % (AUTO) 8.8 % (2.0-12.0); NEUTROPHILS # (AUTO) 2.8 /CMM (1.8-8.9); NEUTROPHILS % (AUTO) 59.7 % (43.0-81.0); PLATELET COUNT (AUTO) 384 /CMM (150-450); RED BLOOD CELL COUNT(AUTO) 4.08 MIL/uL (4.5-6.0); WHITE BLOOD COUNT (AUTO) 4.8 K/uL (4.3-11.0)
[2016-12-26 08:25] LABS: CALCIUM, SERUM 8.9 mg/dL (8.5-10.1); CREATININE 0.9 mg/dL (0.6-1.3); PHOSPHORUS 2.5 mg/dL (2.5-4.9); POTASSIUM 3.3 mmol/L (3.5-5.1)
[2016-12-26] MEDS: HALOPERIDOL LACTATE 10 MG/5 ML UDC PO SCH ×2 (09:00→13:00)
[2016-12-26] MEDS: PYRAZINAMIDE 500 MG TABLET PO SCH (09:00)
[2016-12-26] MEDS: ETHAMBUTOL HCL (400 MG) 400 MG TABLET PO SCH (09:00)
[2016-12-26] MEDS: ISONIAZID (300 MG) 300 MG TABLET PO SCH (09:53)
[2016-12-26] MEDS: HALOPERIDOL LACTATE INJ 5 MG/ML VIAL IM PRN (09:53)
[2016-12-26] MEDS: PYRIDOXINE HCL 50 MG TABLET PO SCH (09:54)
[2016-12-26] MEDS: METFORMIN 500 MG TABLET PO SCH ×2 (09:55→17:00)
[2016-12-26] MEDS: POTASSIUM CL. PREMIX PERIPHER. 50 ML IV SCH ×2 (12:30→12:54)
[2016-12-26] MEDS ORDERED: IV SET PRIMARY 1 EA INFUS.SET MC ONE (19:42)
[2016-12-26] MEDS: MIRTAZAPINE 15 MG TABLET PO SCH (22:48)
[2016-12-26] MEDS: *INSULIN REGULAR(HUMULIN R)HUM 100 UNIT/ML VIAL SQ PRN (22:54)
[2016-12-27] MEDS: BLOOD SUGAR DIAGNOSTIC 1 EACH STRIP VI SCH ×4 (05:35→22:00)
[2016-12-27 07:22] LABS: BASOPHILS % (AUTO) 0.9 % (0.0-2.0); DIFF TOTAL % 100 %; EOSINOPHILS # (AUTO) 0.3 /CMM (0.0-0.7); EOSINOPHILS % (AUTO) 5.6 % (0.0-6.0); HEMATOCRIT 34 % (39-51); HEMOGLOBIN 11.6 g/dL (13.5-17.5); LYMPHOCYTES # (AUTO) 1.2 /CMM (0.8-4.8); LYMPHOCYTES % (AUTO) 26.9 % (20.0-44.0); MEAN CORPUSCULAR HEMOGLOBIN 33 PG (26.0-33.0); MEAN CORPUSCULAR HGB CONC 34 g/dl (31.0-36.0); MEAN CORPUSCULAR VOLUME 96 fL (80-96); MONOCYTES # (AUTO) 0.4 /CMM (0.1-1.30); MONOCYTES % (AUTO) 8.8 % (2.0-12.0); NEUTROPHILS # (AUTO) 2.6 /CMM (1.8-8.9); NEUTROPHILS % (AUTO) 57.8 % (43.0-81.0); PLATELET COUNT (AUTO) 305 /CMM (150-450); RED BLOOD CELL COUNT(AUTO) 3.55 MIL/uL (4.5-6.0); WHITE BLOOD COUNT (AUTO) 4.5 K/uL (4.3-11.0)
[2016-12-27 08:07] LABS: CALCIUM, SERUM 8.6 mg/dL (8.5-10.1); CREATININE 0.8 mg/dL (0.6-1.3); PHOSPHORUS 2.5 mg/dL (2.5-4.9)
[2016-12-27] MEDS: HALOPERIDOL LACTATE 10 MG/5 ML UDC PO SCH ×3 (09:00→23:31)
[2016-12-27] MEDS: IV D5/ 0.9% NACL 1,000 ML IV PRN (09:26)
[2016-12-27] MEDS ORDERED: METFORMIN 500 MG TABLET GT SCH (10:45)
[2016-12-27] MEDS ORDERED: ISONIAZID (300 MG) 300 MG TABLET GT SCH (10:46)
[2016-12-27] MEDS ORDERED: METFORMIN 500 MG TABLET NG SCH (10:48)
[2016-12-27] MEDS ORDERED: ETHAMBUTOL HCL (400 MG) 400 MG TABLET NG SCH (10:48)
[2016-12-27] MEDS ORDERED: PYRAZINAMIDE 500 MG TABLET NG SCH (10:49)
[2016-12-27] MEDS ORDERED: BISACODYL (5 MG) 5 MG TABLET.DR NG PRN (10:52)
[2016-12-27] MEDS ORDERED: SECONDARY IV SET 1 EA INFUS.SET MC ONE ×2 (11:12→13:18)
[2016-12-27] MEDS: Magnesium 1GM/D5W 100ML PREMIX 100 ML IV SCH ×2 (11:15→12:40)
[2016-12-27] MEDS: PYRAZINAMIDE 500 MG TABLET NG SCH (11:24)
[2016-12-27] MEDS: ETHAMBUTOL HCL (400 MG) 400 MG TABLET NG SCH (11:24)
[2016-12-27] MEDS: METFORMIN 500 MG TABLET NG SCH ×2 (11:25→16:12)
[2016-12-27] MEDS: ISONIAZID (300 MG) 300 MG TABLET NG SCH (11:26)
[2016-12-27] MEDS: POTASSIUM CL. PREMIX PERIPHER. 50 ML IV SCH ×6 (13:32→23:32)
[2016-12-27 20:00] VITALS: BP 114/66
[2016-12-27] MEDS ORDERED: POTASSIUM CL. PREMIX PERIPHER. 50 ML ONE (23:20)
[2016-12-27] MEDS: MIRTAZAPINE 15 MG TABLET PO SCH (23:31)
[2016-12-28] MEDS: *INSULIN REGULAR(HUMULIN R)HUM 100 UNIT/ML VIAL SQ PRN (00:02)
[2016-12-28] MEDS: IV D5/ 0.9% NACL 1,000 ML IV PRN (03:15)
[2016-12-28] MEDS: BLOOD SUGAR DIAGNOSTIC 1 EACH STRIP VI SCH ×4 (06:45→22:19)
[2016-12-28] MEDS: INSULIN REGULAR, HUMAN 100 UNIT/ML 3 ML VIAL SQ PRN (06:46)
[2016-12-28] MEDS: HALOPERIDOL LACTATE 10 MG/5 ML UDC PO SCH ×4 (09:00→17:44)
[2016-12-28 09:14] LABS: BASOPHILS % (AUTO) 0.6 % (0.0-2.0); DIFF TOTAL % 100 %; EOSINOPHILS # (AUTO) 0.2 /CMM (0.0-0.7); EOSINOPHILS % (AUTO) 4.5 % (0.0-6.0); HEMATOCRIT 38 % (39-51); HEMOGLOBIN 12.5 g/dL (13.5-17.5); LYMPHOCYTES # (AUTO) 1.4 /CMM (0.8-4.8); LYMPHOCYTES % (AUTO) 28.6 % (20.0-44.0); MEAN CORPUSCULAR HEMOGLOBIN 33 PG (26.0-33.0); MEAN CORPUSCULAR HGB CONC 33 g/dl (31.0-36.0); MEAN CORPUSCULAR VOLUME 98 fL (80-96); MONOCYTES # (AUTO) 0.4 /CMM (0.1-1.30); MONOCYTES % (AUTO) 8.1 % (2.0-12.0); NEUTROPHILS # (AUTO) 2.9 /CMM (1.8-8.9); NEUTROPHILS % (AUTO) 58.2 % (43.0-81.0); PLATELET COUNT (AUTO) 295 /CMM (150-450); RED BLOOD CELL COUNT(AUTO) 3.84 MIL/uL (4.5-6.0)
[2016-12-28] MEDS: ISONIAZID (300 MG) 300 MG TABLET NG SCH (09:14)
[2016-12-28] MEDS: PYRAZINAMIDE 500 MG TABLET NG SCH (09:14)
[2016-12-28] MEDS: METFORMIN 500 MG TABLET NG SCH ×2 (09:14→17:43)
[2016-12-28] MEDS: ETHAMBUTOL HCL (400 MG) 400 MG TABLET NG SCH (09:15)
[2016-12-28] MEDS: PYRIDOXINE HCL 50 MG TABLET NG SCH (09:16)
[2016-12-28 09:29] LABS: CALCIUM, SERUM 8.4 mg/dL (8.5-10.1); CREATININE 0.8 mg/dL (0.6-1.3); PHOSPHORUS 2.4 mg/dL (2.5-4.9); POTASSIUM 3.6 mmol/L (3.5-5.1)
[2016-12-28] MEDS: POTASSIUM PHOSPHATE MM 7.5 MMOL in IV D5W 100 ML IV SCH ×2 (15:00→22:18)
[2016-12-28] MEDS ORDERED: SECONDARY IV SET 1 EA INFUS.SET MC ONE (16:10)
[2016-12-28 22:00] VITALS: BP 139/52
[2016-12-28] MEDS: MIRTAZAPINE 15 MG TABLET PO SCH (22:18)
[2016-12-29] MEDS ORDERED: FIBERSOURCE HN 1,000 ML BOTTLE ONE ×2 (00:45→23:25)
[2016-12-29] MEDS: FIBERSOURCE HN 1,000 ML BOTTLE NG SCH (00:56)
[2016-12-29] MEDS: BLOOD SUGAR DIAGNOSTIC 1 EACH STRIP VI SCH ×4 (06:42→22:00)
[2016-12-29] MEDS: HALOPERIDOL LACTATE 10 MG/5 ML UDC PO SCH ×3 (09:00→17:00)
[2016-12-29] MEDS: ISONIAZID (300 MG) 300 MG TABLET NG SCH (11:26)
[2016-12-29] MEDS: PYRIDOXINE HCL 50 MG TABLET NG SCH (11:26)
[2016-12-29] MEDS: METFORMIN 500 MG TABLET NG SCH ×2 (11:26→17:00)
[2016-12-29] MEDS: ETHAMBUTOL HCL (400 MG) 400 MG TABLET NG SCH (11:30)
[2016-12-29] MEDS: PYRAZINAMIDE 500 MG TABLET NG SCH (11:31)
[2016-12-29 20:00] VITALS: BP 108/60
[2016-12-29] MEDS: MIRTAZAPINE 15 MG TABLET PO SCH (22:00)
[2016-12-30] VITALS: BP 108/74
[2016-12-30 04:00] VITALS: BP 114/71
[2016-12-30 07:37] LABS: BASOPHILS % (AUTO) 0.6 % (0.0-2.0); DIFF TOTAL % 100 %; EOSINOPHILS # (AUTO) 0.2 /CMM (0.0-0.7); EOSINOPHILS % (AUTO) 2.9 % (0.0-6.0); HEMATOCRIT 36 % (39-51); HEMOGLOBIN 12.1 g/dL (13.5-17.5); LYMPHOCYTES # (AUTO) 1.1 /CMM (0.8-4.8); LYMPHOCYTES % (AUTO) 18.3 % (20.0-44.0); MEAN CORPUSCULAR HEMOGLOBIN 33 PG (26.0-33.0); MEAN CORPUSCULAR HGB CONC 34 g/dl (31.0-36.0); MEAN CORPUSCULAR VOLUME 98 fL (80-96); MONOCYTES # (AUTO) 0.4 /CMM (0.1-1.30); MONOCYTES % (AUTO) 7.5 % (2.0-12.0); NEUTROPHILS # (AUTO) 4.2 /CMM (1.8-8.9); NEUTROPHILS % (AUTO) 70.7 % (43.0-81.0); PLATELET COUNT (AUTO) 324 /CMM (150-450); RED BLOOD CELL COUNT(AUTO) 3.66 MIL/uL (4.5-6.0); WHITE BLOOD COUNT (AUTO) 5.9 K/uL (4.3-11.0)
[2016-12-30 07:50] LABS: CALCIUM, SERUM 8.3 mg/dL (8.5-10.1); CREATININE 0.7 mg/dL (0.6-1.3); PHOSPHORUS 3.1 mg/dL (2.5-4.9); POTASSIUM 3.4 mmol/L (3.5-5.1)
[2016-12-30 08:00] VITALS: BP 102/59
[2016-12-30] MEDS: ETHAMBUTOL HCL (400 MG) 400 MG TABLET NG SCH (08:28)
[2016-12-30] MEDS: METFORMIN 500 MG TABLET NG SCH ×2 (08:29→16:44)
[2016-12-30] MEDS: PYRIDOXINE HCL 50 MG TABLET NG SCH (08:29)
[2016-12-30] MEDS: ISONIAZID (300 MG) 300 MG TABLET NG SCH (08:29)
[2016-12-30] MEDS: PYRAZINAMIDE 500 MG TABLET NG SCH (08:30)
[2016-12-30] MEDS: HALOPERIDOL LACTATE 10 MG/5 ML UDC PO SCH ×3 (08:31→16:45)
[2016-12-30] MEDS: BLOOD SUGAR DIAGNOSTIC 1 EACH STRIP VI SCH ×4 (08:31→21:39)
[2016-12-30] MEDS: INSULIN REGULAR, HUMAN 100 UNIT/ML 3 ML VIAL SQ PRN ×3 (08:34→16:47)
[2016-12-30] MEDS ORDERED: SECONDARY IV SET 1 EA INFUS.SET MC ONE (11:24)
[2016-12-30] MEDS ORDERED: IV SET PRIMARY PUMP SET 1 EA INFUS.SET MC ONE (11:24)
[2016-12-30] MEDS: IV D5/ 0.9% NACL 1,000 ML IV PRN (11:33)
[2016-12-30] MEDS: POTASSIUM CL. PREMIX PERIPHER. 50 ML IV SCH ×2 (11:39→12:38)
[2016-12-30] MEDS: Magnesium 1GM/D5W 100ML PREMIX 100 ML IV SCH ×2 (13:39→15:04)
[2016-12-30 16:00] VITALS: BP 100/52
[2016-12-30 21:05] VITALS: BP 99/55
[2016-12-30] MEDS: MIRTAZAPINE 15 MG TABLET PO SCH (21:39)
[2016-12-31] MEDS: IV D5/ 0.9% NACL 1,000 ML IV PRN ×3 (01:35→21:49)
[2016-12-31] MEDS: FIBERSOURCE HN 1,000 ML BOTTLE NG SCH ×2 (01:35→21:36)
[2016-12-31] MEDS: BLOOD SUGAR DIAGNOSTIC 1 EACH STRIP VI SCH ×4 (06:54→21:28)
[2016-12-31] MEDS: INSULIN REGULAR, HUMAN 100 UNIT/ML 3 ML VIAL SQ PRN (06:58)
[2016-12-31 07:06] VITALS: BP 101/70
[2016-12-31 07:17] LABS: CALCIUM, SERUM 8.4 mg/dL (8.5-10.1); CREATININE 0.7 mg/dL (0.6-1.3); POTASSIUM 4.1 mmol/L (3.5-5.1)
[2016-12-31 08:00] VITALS: BP 115/72
[2016-12-31] MEDS: PYRAZINAMIDE 500 MG TABLET NG SCH (09:00)
[2016-12-31] MEDS: METFORMIN 500 MG TABLET NG SCH ×2 (09:00→16:56)
[2016-12-31] MEDS: ISONIAZID (300 MG) 300 MG TABLET NG SCH (09:00)
[2016-12-31] MEDS: ETHAMBUTOL HCL (400 MG) 400 MG TABLET NG SCH (09:00)
[2016-12-31] MEDS: PYRIDOXINE HCL 50 MG TABLET NG SCH (09:00)
[2016-12-31] MEDS: HALOPERIDOL LACTATE 10 MG/5 ML UDC PO SCH ×3 (09:00→16:56)
[2016-12-31 16:00] VITALS: BP 104/61
[2016-12-31 20:00] VITALS: BP 101/64
[2016-12-31] MEDS: MIRTAZAPINE 15 MG TABLET PO SCH (21:26)
[2017-01-01] MEDS: BLOOD SUGAR DIAGNOSTIC 1 EACH STRIP VI SCH ×4 (06:13→21:23)
[2017-01-01] MEDS: IV D5/ 0.9% NACL 1,000 ML IV PRN ×2 (06:13→16:27)
[2017-01-01 08:00] VITALS: BP_SYST 101; BP_SYST 99; BP_DIAS 60; BP_DIAS 64
[2017-01-01 08:31] LABS: CALCIUM, SERUM 8.4 mg/dL (8.5-10.1); CREATININE 0.7 mg/dL (0.6-1.3); POTASSIUM 3.5 mmol/L (3.5-5.1)
[2017-01-01] MEDS: PYRIDOXINE HCL 50 MG TABLET NG SCH (08:44)
[2017-01-01] MEDS: METFORMIN 500 MG TABLET NG SCH ×2 (08:44→16:27)
[2017-01-01] MEDS: HALOPERIDOL LACTATE 10 MG/5 ML UDC PO SCH ×3 (08:44→16:26)
[2017-01-01] MEDS: PYRAZINAMIDE 500 MG TABLET NG SCH (08:45)
[2017-01-01] MEDS: ETHAMBUTOL HCL (400 MG) 400 MG TABLET NG SCH (08:45)
[2017-01-01] MEDS: ISONIAZID (300 MG) 300 MG TABLET NG SCH (08:45)
[2017-01-01 16:00] VITALS: BP 102/66
[2017-01-01 20:00] VITALS: BP 105/65
[2017-01-01] MEDS: MIRTAZAPINE 15 MG TABLET PO SCH (21:23)
[2017-01-02] MEDS: IV D5/ 0.9% NACL 1,000 ML IV PRN ×3 (02:42→22:51)
[2017-01-02] MEDS: BLOOD SUGAR DIAGNOSTIC 1 EACH STRIP VI SCH ×4 (05:57→21:21)
[2017-01-02] MEDS: INSULIN REGULAR, HUMAN 100 UNIT/ML 3 ML VIAL SQ PRN (06:00)
[2017-01-02 07:59] LABS: CALCIUM, SERUM 8.8 mg/dL (8.5-10.1); CREATININE 0.7 mg/dL (0.6-1.3); POTASSIUM 4.3 mmol/L (3.5-5.1)
[2017-01-02 08:00] VITALS: BP 115/86
[2017-01-02] MEDS: FIBERSOURCE HN 1,000 ML BOTTLE NG SCH (08:19)
[2017-01-02] MEDS: RIFAMPIN 300 MG CAPSULE PO SCH (08:20)
[2017-01-02] MEDS: PYRAZINAMIDE 500 MG TABLET NG SCH (08:21)
[2017-01-02] MEDS: PYRIDOXINE HCL 50 MG TABLET NG SCH (08:21)
[2017-01-02] MEDS: METFORMIN 500 MG TABLET NG SCH ×2 (08:21→16:39)
[2017-01-02] MEDS: ISONIAZID (300 MG) 300 MG TABLET NG SCH (08:21)
[2017-01-02] MEDS: HALOPERIDOL LACTATE 10 MG/5 ML UDC PO SCH ×3 (08:21→16:39)
[2017-01-02] MEDS: ETHAMBUTOL HCL (400 MG) 400 MG TABLET NG SCH (08:22)
[2017-01-02 16:00] VITALS: BP 106/52
[2017-01-02 20:00] VITALS: BP 116/69
[2017-01-02] MEDS: MIRTAZAPINE 15 MG TABLET PO SCH (21:09)
[2017-01-03] MEDS: FIBERSOURCE HN 1,000 ML BOTTLE NG SCH (05:59)
[2017-01-03] MEDS: INSULIN REGULAR, HUMAN 100 UNIT/ML 3 ML VIAL SQ PRN (05:59)
[2017-01-03] MEDS: BLOOD SUGAR DIAGNOSTIC 1 EACH STRIP VI SCH ×4 (06:21→22:33)
[2017-01-03 07:35] LABS: CALCIUM, SERUM 8.6 mg/dL (8.5-10.1); CREATININE 0.7 mg/dL (0.6-1.3); POTASSIUM 3.4 mmol/L (3.5-5.1)
[2017-01-03 08:00] VITALS: BP 116/81
[2017-01-03] MEDS ORDERED: POTASSIUM CHLORIDE 20 MEQ POWDER PACKET NG ONE (09:30)
[2017-01-03] MEDS: IV D5/ 0.9% NACL 1,000 ML IV PRN ×2 (09:38→20:23)
[2017-01-03] MEDS: PYRAZINAMIDE 500 MG TABLET NG SCH (09:39)
[2017-01-03] MEDS: HALOPERIDOL LACTATE 10 MG/5 ML UDC PO SCH ×3 (09:39→16:54)
[2017-01-03] MEDS: ETHAMBUTOL HCL (400 MG) 400 MG TABLET NG SCH (09:40)
[2017-01-03] MEDS: ISONIAZID (300 MG) 300 MG TABLET NG SCH (09:45)
[2017-01-03] MEDS: METFORMIN 500 MG TABLET NG SCH ×2 (09:45→16:55)
[2017-01-03] MEDS: RIFAMPIN 300 MG CAPSULE PO SCH (09:45)
[2017-01-03] MEDS: PYRIDOXINE HCL 50 MG TABLET NG SCH (09:45)
[2017-01-03 16:00] VITALS: BP 118/82
[2017-01-03 20:00] VITALS: BP 117/70
[2017-01-03] MEDS ORDERED: IV NS 0.9% 0 ML ONE (20:02)
[2017-01-03] MEDS ORDERED: IV D5/ 0.9% NACL 1,000 ML IV ONE (20:11)
[2017-01-03 20:41] LABS: CALCIUM, SERUM 8.3 mg/dL (8.5-10.1); CREATININE 0.7 mg/dL (0.6-1.3); POTASSIUM 3.5 mmol/L (3.5-5.1)
[2017-01-03 20:50] LABS: INR 0.99 (0.87-1.13); PROTHROMBIN TIME 10.7 SECS (9.5-12.7)
[2017-01-03] MEDS: MIRTAZAPINE 15 MG TABLET PO SCH (22:11)
[2017-01-04] MEDS: FIBERSOURCE HN 1,000 ML BOTTLE NG SCH (02:30)
[2017-01-04] MEDS ORDERED: IV D5/ 0.9% NACL 1,000 ML IV ONE (06:21)
[2017-01-04] MEDS: IV D5/ 0.9% NACL 1,000 ML IV PRN ×2 (06:27→22:47)
[2017-01-04] MEDS: BLOOD SUGAR DIAGNOSTIC 1 EACH STRIP VI SCH ×4 (06:36→21:22)
[2017-01-04 08:00] VITALS: BP 116/66
[2017-01-04 08:30] LABS: CALCIUM, SERUM 8.3 mg/dL (8.5-10.1); CREATININE 0.6 mg/dL (0.6-1.3); POTASSIUM 3.5 mmol/L (3.5-5.1)
[2017-01-04] MEDS: PYRIDOXINE HCL 50 MG TABLET NG SCH (09:16)
[2017-01-04] MEDS: METFORMIN 500 MG TABLET NG SCH ×2 (09:17→16:31)
[2017-01-04] MEDS: RIFAMPIN 300 MG CAPSULE PO SCH (09:17)
[2017-01-04] MEDS: ISONIAZID (300 MG) 300 MG TABLET NG SCH (09:17)
[2017-01-04] MEDS: PYRAZINAMIDE 500 MG TABLET NG SCH (09:18)
[2017-01-04] MEDS: ETHAMBUTOL HCL (400 MG) 400 MG TABLET NG SCH (09:19)
[2017-01-04] MEDS: HALOPERIDOL LACTATE 10 MG/5 ML UDC PO SCH ×3 (09:20→16:31)
[2017-01-04] MEDS: POTASSIUM CL. PREMIX PERIPHER. 50 ML IV SCH ×7 (13:17→18:41)
[2017-01-04 20:00] VITALS: BP 103/72
[2017-01-04] MEDS: MIRTAZAPINE 15 MG TABLET PO SCH (21:18)
[2017-01-05] MEDS: BLOOD SUGAR DIAGNOSTIC 1 EACH STRIP VI SCH ×4 (06:18→22:23)
[2017-01-05 07:56] LABS: BASOPHILS # (AUTO) 0.1 /CMM (0.0-0.2); BASOPHILS % (AUTO) 1.2 % (0.0-2.0); DIFF TOTAL % 100 %; EOSINOPHILS # (AUTO) 0.2 /CMM (0.0-0.7); EOSINOPHILS % (AUTO) 4.8 % (0.0-6.0); HEMATOCRIT 34 % (39-51); HEMOGLOBIN 11.7 g/dL (13.5-17.5); LYMPHOCYTES # (AUTO) 1.2 /CMM (0.8-4.8); LYMPHOCYTES % (AUTO) 23.2 % (20.0-44.0); MEAN CORPUSCULAR HEMOGLOBIN 33 PG (26.0-33.0); MEAN CORPUSCULAR HGB CONC 34 g/dl (31.0-36.0); MEAN CORPUSCULAR VOLUME 98 fL (80-96); MONOCYTES # (AUTO) 0.4 /CMM (0.1-1.30); MONOCYTES % (AUTO) 8.7 % (2.0-12.0); NEUTROPHILS # (AUTO) 3.1 /CMM (1.8-8.9); NEUTROPHILS % (AUTO) 62.1 % (43.0-81.0); PLATELET COUNT (AUTO) 395 /CMM (150-450); RED BLOOD CELL COUNT(AUTO) 3.52 MIL/uL (4.5-6.0)
[2017-01-05 08:00] VITALS: BP 117/74
[2017-01-05 08:22] LABS: CREATININE 0.7 mg/dL (0.6-1.3); POTASSIUM 4.2 mmol/L (3.5-5.1)
[2017-01-05] MEDS: ISONIAZID (300 MG) 300 MG TABLET NG SCH (09:00)
[2017-01-05] MEDS: PYRAZINAMIDE 500 MG TABLET NG SCH (09:00)
[2017-01-05] MEDS: ETHAMBUTOL HCL (400 MG) 400 MG TABLET NG SCH (09:00)
[2017-01-05] MEDS: HALOPERIDOL LACTATE 10 MG/5 ML UDC PO SCH ×3 (09:00→17:00)
[2017-01-05] MEDS: PYRIDOXINE HCL 50 MG TABLET NG SCH (09:00)
[2017-01-05] MEDS: METFORMIN 500 MG TABLET NG SCH ×2 (09:00→17:00)
[2017-01-05] MEDS: RIFAMPIN 300 MG CAPSULE PO SCH (09:00)
[2017-01-05 16:00] VITALS: BP 112/68
[2017-01-05 22:00] VITALS: BP 126/69
[2017-01-05] MEDS: MIRTAZAPINE 15 MG TABLET PO SCH (22:00)
[2017-01-06] MEDS: IV D5/ 0.9% NACL 1,000 ML IV PRN ×2 (00:03→13:38)
[2017-01-06] MEDS: BLOOD SUGAR DIAGNOSTIC 1 EACH STRIP VI SCH ×4 (06:23→21:22)
[2017-01-06 08:00] VITALS: BP 126/71
[2017-01-06] MEDS: RIFAMPIN 300 MG CAPSULE PO SCH ×2 (08:08→13:26)
[2017-01-06] MEDS: PYRIDOXINE HCL 50 MG TABLET NG SCH ×2 (08:08→13:26)
[2017-01-06] MEDS: PYRAZINAMIDE 500 MG TABLET NG SCH ×2 (08:08→13:26)
[2017-01-06] MEDS: ISONIAZID (300 MG) 300 MG TABLET NG SCH ×2 (08:08→13:26)
[2017-01-06] MEDS: HALOPERIDOL LACTATE 10 MG/5 ML UDC PO SCH ×3 (08:08→17:28)
[2017-01-06] MEDS: ETHAMBUTOL HCL (400 MG) 400 MG TABLET NG SCH ×2 (08:08→13:27)
[2017-01-06] MEDS: METFORMIN 500 MG TABLET NG SCH ×2 (08:08→17:28)
[2017-01-06] MEDS: FIBERSOURCE HN 1,000 ML BOTTLE NG SCH (13:26)
[2017-01-06] MEDS: INSULIN REGULAR, HUMAN 100 UNIT/ML 3 ML VIAL SQ PRN (17:30)
[2017-01-06 20:00] VITALS: BP 139/76
[2017-01-06] MEDS: MIRTAZAPINE 15 MG TABLET PO SCH (21:22)
[2017-01-06] MEDS: *INSULIN REGULAR(HUMULIN R)HUM 100 UNIT/ML VIAL SQ PRN (21:23)
[2017-01-07] MEDS: IV D5/ 0.9% NACL 1,000 ML IV PRN ×2 (00:05→12:29)
[2017-01-07] MEDS: INSULIN REGULAR, HUMAN 100 UNIT/ML 3 ML VIAL SQ PRN (06:23)
[2017-01-07] MEDS: BLOOD SUGAR DIAGNOSTIC 1 EACH STRIP VI SCH ×4 (06:23→21:38)
[2017-01-07 07:52] LABS: BASOPHILS % (AUTO) 0.7 % (0.0-2.0); DIFF TOTAL % 100 %; EOSINOPHILS # (AUTO) 0.2 /CMM (0.0-0.7); EOSINOPHILS % (AUTO) 3.9 % (0.0-6.0); HEMATOCRIT 32 % (39-51); HEMOGLOBIN 10.8 g/dL (13.5-17.5); LYMPHOCYTES % (AUTO) 17.6 % (20.0-44.0); MEAN CORPUSCULAR HEMOGLOBIN 33 PG (26.0-33.0); MEAN CORPUSCULAR HGB CONC 34 g/dl (31.0-36.0); MEAN CORPUSCULAR VOLUME 99 fL (80-96); MONOCYTES # (AUTO) 0.4 /CMM (0.1-1.30); MONOCYTES % (AUTO) 7.3 % (2.0-12.0); NEUTROPHILS % (AUTO) 70.5 % (43.0-81.0); PLATELET COUNT (AUTO) 373 /CMM (150-450); RED BLOOD CELL COUNT(AUTO) 3.24 MIL/uL (4.5-6.0); WHITE BLOOD COUNT (AUTO) 5.7 K/uL (4.3-11.0)
[2017-01-07 08:02] LABS: CALCIUM, SERUM 8.6 mg/dL (8.5-10.1); CREATININE 0.7 mg/dL (0.6-1.3); POTASSIUM 3.4 mmol/L (3.5-5.1)
[2017-01-07 08:30] VITALS: BP 95/61
[2017-01-07] MEDS ORDERED: FENTANYL PF 100MCG/2ML AMPUL IV ONE ×2 (09:00→11:00)
[2017-01-07] MEDS: METFORMIN 500 MG TABLET NG SCH ×2 (09:00→17:25)
[2017-01-07] MEDS ORDERED: MIDAZOLAM HCL 5 MG/ML VIAL IM ONE (09:00)
[2017-01-07] MEDS ORDERED: FENTANYL PF 100MCG/2ML AMPUL IV PRN (09:00)
[2017-01-07] MEDS: HALOPERIDOL LACTATE 10 MG/5 ML UDC PO SCH ×3 (09:00→17:26)
[2017-01-07] MEDS ORDERED: MIDAZOLAM HCL 2 MG/2ML VIAL IV ONE (11:00)
[2017-01-07 11:20] VITALS: BP 103/67
[2017-01-07 11:34] VITALS: BP 104/67
[2017-01-07 11:50] VITALS: BP 107/62
[2017-01-07] MEDS ORDERED: SECONDARY IV SET 1 EA INFUS.SET MC ONE (12:07)
[2017-01-07] MEDS: POTASSIUM CL. PREMIX PERIPHER. 50 ML IV SCH ×2 (12:35→13:31)
[2017-01-07] MEDS: RIFAMPIN 300 MG CAPSULE PO SCH (17:25)
[2017-01-07] MEDS: PYRIDOXINE HCL 50 MG TABLET NG SCH (17:25)
[2017-01-07] MEDS: ISONIAZID (300 MG) 300 MG TABLET NG SCH (17:25)
[2017-01-07] MEDS: ETHAMBUTOL HCL (400 MG) 400 MG TABLET NG SCH (17:26)
[2017-01-07] MEDS: FIBERSOURCE HN 1,000 ML BOTTLE NG SCH (17:27)
[2017-01-07] MEDS: PYRAZINAMIDE 500 MG TABLET NG SCH (17:27)
[2017-01-07 20:00] VITALS: BP 108/69
[2017-01-07] MEDS ORDERED: clonazePAM 0.5 MG TABLET GT PRN (20:10)
[2017-01-07] MEDS ORDERED: MAG HYDROX/AL HYDROX/SIMETH 30 ML UDC GT PRN (20:11)
[2017-01-07] MEDS ORDERED: MAGNESIUM HYDROXIDE 30 ML UDC GT PRN (20:12)
[2017-01-07] MEDS ORDERED: POLYETHYLENE GLYCOL 3350 17 GM POWD.PACK GT PRN (20:12)
[2017-01-07] MEDS ORDERED: HYDROCODONE/APAP 5/325MG 1 EACH TABLET GT PRN (20:14)
[2017-01-07] MEDS ORDERED: TEMAZEPAM 7.5 MG CAPSULE GT PRN (20:15)
[2017-01-07] MEDS ORDERED: ONDANSETRON 4 MG TAB.RAPDIS GT PRN (20:30)
[2017-01-07] MEDS ORDERED: PHARMACY TO CHANGE PO MEDS TO GT/NG XX PRN (20:30)
[2017-01-07] MEDS: MIRTAZAPINE 15 MG TABLET GT SCH (21:38)
[2017-01-08] MEDS: IV D5/ 0.9% NACL 1,000 ML IV PRN (01:28)
[2017-01-08] MEDS: BLOOD SUGAR DIAGNOSTIC 1 EACH STRIP VI SCH ×4 (06:07→21:41)
[2017-01-08 07:30] LABS: CALCIUM, SERUM 8.4 mg/dL (8.5-10.1); CREATININE 0.7 mg/dL (0.6-1.3); POTASSIUM 3.3 mmol/L (3.5-5.1)
[2017-01-08 07:46] LABS: BASOPHILS % (AUTO) 0.4 % (0.0-2.0); DIFF TOTAL % 100 %; EOSINOPHILS # (AUTO) 0.2 /CMM (0.0-0.7); EOSINOPHILS % (AUTO) 2.9 % (0.0-6.0); HEMATOCRIT 30 % (39-51); HEMOGLOBIN 10.1 g/dL (13.5-17.5); LYMPHOCYTES # (AUTO) 1.2 /CMM (0.8-4.8); LYMPHOCYTES % (AUTO) 16.5 % (20.0-44.0); MEAN CORPUSCULAR HEMOGLOBIN 33 PG (26.0-33.0); MEAN CORPUSCULAR HGB CONC 34 g/dl (31.0-36.0); MEAN CORPUSCULAR VOLUME 98 fL (80-96); MONOCYTES # (AUTO) 0.4 /CMM (0.1-1.30); MONOCYTES % (AUTO) 5.5 % (2.0-12.0); NEUTROPHILS # (AUTO) 5.4 /CMM (1.8-8.9); NEUTROPHILS % (AUTO) 74.7 % (43.0-81.0); PLATELET COUNT (AUTO) 371 /CMM (150-450); RED BLOOD CELL COUNT(AUTO) 3.07 MIL/uL (4.5-6.0); WHITE BLOOD COUNT (AUTO) 7.3 K/uL (4.3-11.0)
[2017-01-08 08:00] VITALS: BP 117/68
[2017-01-08] MEDS: PYRIDOXINE HCL 50 MG TABLET NG SCH (08:18)
[2017-01-08] MEDS: METFORMIN 500 MG TABLET NG SCH ×2 (08:18→17:18)
[2017-01-08] MEDS: RIFAMPIN 300 MG CAPSULE GT SCH (08:19)
[2017-01-08] MEDS: ISONIAZID (300 MG) 300 MG TABLET NG SCH (08:19)
[2017-01-08] MEDS: BACITRACIN ZINC OINT PACKET 1 EA PACKET TP SCH (08:21)
[2017-01-08] MEDS: HALOPERIDOL LACTATE 10 MG/5 ML UDC GT SCH ×3 (08:21→17:18)
[2017-01-08] MEDS: ETHAMBUTOL HCL (400 MG) 400 MG TABLET NG SCH (09:00)
[2017-01-08] MEDS: PYRAZINAMIDE 500 MG TABLET NG SCH (09:00)
[2017-01-08] MEDS ORDERED: POTASSIUM CHLORIDE 20 MEQ POWDER PACKET GT SCH (12:30)
[2017-01-08] MEDS: FIBERSOURCE HN 1,000 ML BOTTLE NG SCH (15:06)
[2017-01-08] MEDS: MIRTAZAPINE 15 MG TABLET GT SCH (21:40)
[2017-01-09] MEDS: BLOOD SUGAR DIAGNOSTIC 1 EACH STRIP VI SCH ×4 (07:24→23:27)
[2017-01-09] MEDS: IV D5/ 0.9% NACL 1,000 ML IV PRN (07:25)
[2017-01-09] MEDS: INSULIN REGULAR, HUMAN 100 UNIT/ML 3 ML VIAL SQ PRN (07:32)
[2017-01-09 07:55] LABS: BASOPHILS % (AUTO) 0.5 % (0.0-2.0); DIFF TOTAL % 100 %; EOSINOPHILS # (AUTO) 0.5 /CMM (0.0-0.7); EOSINOPHILS % (AUTO) 10.1 % (0.0-6.0); HEMATOCRIT 30 % (39-51); HEMOGLOBIN 10.2 g/dL (13.5-17.5); LYMPHOCYTES # (AUTO) 1.1 /CMM (0.8-4.8); LYMPHOCYTES % (AUTO) 21.1 % (20.0-44.0); MEAN CORPUSCULAR HEMOGLOBIN 34 PG (26.0-33.0); MEAN CORPUSCULAR HGB CONC 34 g/dl (31.0-36.0); MEAN CORPUSCULAR VOLUME 98 fL (80-96); MONOCYTES # (AUTO) 0.4 /CMM (0.1-1.30); NEUTROPHILS % (AUTO) 60.3 % (43.0-81.0); PLATELET COUNT (AUTO) 363 /CMM (150-450); RED BLOOD CELL COUNT(AUTO) 3.02 MIL/uL (4.5-6.0)
[2017-01-09 08:06] LABS: CALCIUM, SERUM 8.5 mg/dL (8.5-10.1); CREATININE 0.6 mg/dL (0.6-1.3); POTASSIUM 3.1 mmol/L (3.5-5.1)
[2017-01-09] MEDS: RIFAMPIN 300 MG CAPSULE GT SCH (08:34)
[2017-01-09] MEDS: ISONIAZID (300 MG) 300 MG TABLET NG SCH (08:34)
[2017-01-09] MEDS: METFORMIN 500 MG TABLET NG SCH ×2 (08:34→17:07)
[2017-01-09] MEDS: PYRIDOXINE HCL 50 MG TABLET NG SCH (08:34)
[2017-01-09] MEDS: ETHAMBUTOL HCL (400 MG) 400 MG TABLET NG SCH (08:34)
[2017-01-09] MEDS: HALOPERIDOL LACTATE 10 MG/5 ML UDC GT SCH ×3 (08:35→17:07)
[2017-01-09] MEDS: PYRAZINAMIDE 500 MG TABLET NG SCH (08:35)
[2017-01-09] MEDS: BACITRACIN ZINC OINT PACKET 1 EA PACKET TP SCH (08:35)
[2017-01-09] MEDS ORDERED: POTASSIUM CHLORIDE 20 MEQ TAB.PRT.SR PO ONE (11:30)
[2017-01-09] MEDS: FIBERSOURCE HN 1,000 ML BOTTLE NG SCH (17:07)
[2017-01-09 22:00] VITALS: BP 103/62
[2017-01-09] MEDS: MIRTAZAPINE 15 MG TABLET GT SCH (23:27)
[2017-01-10] MEDS: IV D5/ 0.9% NACL 1,000 ML IV PRN (05:55)
[2017-01-10] MEDS: BLOOD SUGAR DIAGNOSTIC 1 EACH STRIP VI SCH ×4 (06:41→21:58)
[2017-01-10] MEDS: INSULIN REGULAR, HUMAN 100 UNIT/ML 3 ML VIAL SQ PRN (06:53)
[2017-01-10 07:30] LABS: DIFF TOTAL % 100 %; EOSINOPHILS # (AUTO) 0.6 /CMM (0.0-0.7); EOSINOPHILS % (AUTO) 11.9 % (0.0-6.0); HEMATOCRIT 30 % (39-51); HEMOGLOBIN 10.1 g/dL (13.5-17.5); LYMPHOCYTES # (AUTO) 1.3 /CMM (0.8-4.8); LYMPHOCYTES % (AUTO) 27.4 % (20.0-44.0); MEAN CORPUSCULAR HEMOGLOBIN 34 PG (26.0-33.0); MEAN CORPUSCULAR HGB CONC 34 g/dl (31.0-36.0); MEAN CORPUSCULAR VOLUME 98 fL (80-96); MONOCYTES # (AUTO) 0.4 /CMM (0.1-1.30); MONOCYTES % (AUTO) 8.4 % (2.0-12.0); NEUTROPHILS # (AUTO) 2.4 /CMM (1.8-8.9); NEUTROPHILS % (AUTO) 51.3 % (43.0-81.0); PLATELET COUNT (AUTO) 408 /CMM (150-450); WHITE BLOOD COUNT (AUTO) 4.6 K/uL (4.3-11.0)
[2017-01-10 08:04] LABS: ALBUMIN 2.4 g/dL (3.4-5.0); BILIRUBIN,DIRECT 0.2 mg/dL (0.0-0.2); BILIRUBIN,TOTAL 0.5 mg/dL (0.2-1.0); CALCIUM, SERUM 8.3 mg/dL (8.5-10.1); CREATININE 0.6 mg/dL (0.6-1.3); INDIRECT BILIRUBIN 0.3 mg/dL (0.0-1.1); PHOSPHORUS 2.2 mg/dL (2.5-4.9); POTASSIUM 3.9 mmol/L (3.5-5.1); TOTAL PROTEIN, SERUM 5.7 g/dL (6.4-8.2)
[2017-01-10] MEDS: PYRAZINAMIDE 500 MG TABLET NG SCH (09:07)
[2017-01-10] MEDS: RIFAMPIN 300 MG CAPSULE GT SCH (09:07)
[2017-01-10] MEDS: METFORMIN 500 MG TABLET NG SCH ×2 (09:07→17:14)
[2017-01-10] MEDS: PYRIDOXINE HCL 50 MG TABLET NG SCH (09:07)
[2017-01-10] MEDS: ISONIAZID (300 MG) 300 MG TABLET NG SCH (09:07)
[2017-01-10] MEDS: BACITRACIN ZINC OINT PACKET 1 EA PACKET TP SCH (09:08)
[2017-01-10] MEDS: ETHAMBUTOL HCL (400 MG) 400 MG TABLET NG SCH (09:08)
[2017-01-10] MEDS: HALOPERIDOL LACTATE 10 MG/5 ML UDC GT SCH ×3 (09:09→17:04)
[2017-01-10] MEDS ORDERED: Sodium Phosphate 15 MMOL in IV D5W 250 ML IV ONE (10:30)
[2017-01-10] MEDS ORDERED: SECONDARY IV SET 1 EA INFUS.SET MC ONE (10:43)
[2017-01-10] MEDS: FIBERSOURCE HN 1,000 ML BOTTLE NG SCH (11:55)
[2017-01-10 20:00] VITALS: BP 99/76
[2017-01-10] MEDS: MIRTAZAPINE 15 MG TABLET GT SCH (22:05)
[2017-01-11] MEDS: IV D5/ 0.9% NACL 1,000 ML IV PRN (03:29)
[2017-01-11] MEDS: FIBERSOURCE HN 1,000 ML BOTTLE NG SCH ×2 (03:54→21:13)
[2017-01-11] MEDS: BLOOD SUGAR DIAGNOSTIC 1 EACH STRIP VI SCH ×4 (05:52→21:29)
[2017-01-11] MEDS: *INSULIN REGULAR(HUMULIN R)HUM 100 UNIT/ML VIAL SQ PRN (06:04)
[2017-01-11 07:15] LABS: BASOPHILS % (AUTO) 0.1 % (0.0-2.0); DIFF TOTAL % 100 %; EOSINOPHILS # (AUTO) 0.2 /CMM (0.0-0.7); EOSINOPHILS % (AUTO) 1.8 % (0.0-6.0); HEMATOCRIT 32 % (39-51); HEMOGLOBIN 10.7 g/dL (13.5-17.5); LYMPHOCYTES # (AUTO) 0.9 /CMM (0.8-4.8); LYMPHOCYTES % (AUTO) 8.4 % (20.0-44.0); MEAN CORPUSCULAR HEMOGLOBIN 34 PG (26.0-33.0); MEAN CORPUSCULAR HGB CONC 34 g/dl (31.0-36.0); MEAN CORPUSCULAR VOLUME 99 fL (80-96); MONOCYTES # (AUTO) 0.4 /CMM (0.1-1.30); MONOCYTES % (AUTO) 3.9 % (2.0-12.0); NEUTROPHILS # (AUTO) 9.5 /CMM (1.8-8.9); NEUTROPHILS % (AUTO) 85.8 % (43.0-81.0); PLATELET COUNT (AUTO) 436 /CMM (150-450); RED BLOOD CELL COUNT(AUTO) 3.19 MIL/uL (4.5-6.0); WHITE BLOOD COUNT (AUTO) 11.1 K/uL (4.3-11.0)
[2017-01-11 07:37] LABS: CALCIUM, SERUM 8.4 mg/dL (8.5-10.1); CREATININE 0.7 mg/dL (0.6-1.3); POTASSIUM 3.8 mmol/L (3.5-5.1)
[2017-01-11 08:00] VITALS: BP 101/58
[2017-01-11 08:07] LABS: PHOSPHORUS 2.6 mg/dL (2.5-4.9)
[2017-01-11] MEDS: RIFAMPIN 300 MG CAPSULE GT SCH (09:09)
[2017-01-11] MEDS: ACETAMINOPHEN 650 MG/20.3 ML UDC GT PRN (09:09)
[2017-01-11] MEDS: PYRIDOXINE HCL 50 MG TABLET NG SCH (09:09)
[2017-01-11] MEDS: HALOPERIDOL LACTATE 10 MG/5 ML UDC GT SCH ×3 (09:09→16:42)
[2017-01-11] MEDS: BACITRACIN ZINC OINT PACKET 1 EA PACKET TP SCH (09:09)
[2017-01-11] MEDS: ISONIAZID (300 MG) 300 MG TABLET NG SCH (09:09)
[2017-01-11] MEDS: METFORMIN 500 MG TABLET NG SCH ×2 (09:09→16:42)
[2017-01-11] MEDS: PYRAZINAMIDE 500 MG TABLET NG SCH (09:10)
[2017-01-11] MEDS: ETHAMBUTOL HCL (400 MG) 400 MG TABLET NG SCH (09:14)
[2017-01-11] MEDS ORDERED: IV NS 0.9% 1,000 ML BAG IV PRN (10:00)
[2017-01-11] MEDS: Magnesium 1GM/D5W 100ML PREMIX 100 ML IV SCH ×2 (11:51→13:19)
[2017-01-11] MEDS: INSULIN REGULAR, HUMAN 100 UNIT/ML 3 ML VIAL SQ PRN (18:27)
[2017-01-11 20:00] VITALS: BP 105/65
[2017-01-11 20:17] LABS: KETONES,URINE NEGATIVE (NEGATIVE); LEUKOCYTE ESTERASE ,URINE TRACE (NEGATIVE)
[2017-01-11 20:29] LABS: ADD UA MICROSCOPIC YES
[2017-01-11] MEDS ORDERED: METRONIDAZOLE 500 MG TABLET ONE (20:29)
[2017-01-11 20:33] LABS: ADD URINE CULTURE YES; RBC,URINE 0-2 /HPF (0-2)
[2017-01-11] MEDS ORDERED: METRONIDAZOLE 500 MG TABLET PO SCH (21:00)
[2017-01-11] MEDS: IV NS 0.9% 1,000 ML IV PRN (21:12)
[2017-01-11] MEDS: METRONIDAZOLE 500 MG TABLET GT SCH (21:12)
[2017-01-11] MEDS: MIRTAZAPINE 15 MG TABLET GT SCH (21:12)
[2017-01-12] MEDS: ACETAMINOPHEN 650 MG/20.3 ML UDC GT PRN ×2 (01:29→21:23)
[2017-01-12] MEDS ORDERED: METRONIDAZOLE 500 MG TABLET ONE (04:51)
[2017-01-12] MEDS: METRONIDAZOLE 500 MG TABLET GT SCH ×3 (05:00→21:19)
[2017-01-12] MEDS: BLOOD SUGAR DIAGNOSTIC 1 EACH STRIP VI SCH ×4 (05:54→21:19)
[2017-01-12] MEDS: INSULIN REGULAR, HUMAN 100 UNIT/ML 3 ML VIAL SQ PRN (05:56)
[2017-01-12 07:20] LABS: BASOPHILS % (AUTO) 0.3 % (0.0-2.0); DIFF TOTAL % 100 %; EOSINOPHILS # (AUTO) 0.2 /CMM (0.0-0.7); EOSINOPHILS % (AUTO) 1.8 % (0.0-6.0); HEMATOCRIT 28 % (39-51); HEMOGLOBIN 9.2 g/dL (13.5-17.5); LYMPHOCYTES # (AUTO) 1.4 /CMM (0.8-4.8); LYMPHOCYTES % (AUTO) 13.8 % (20.0-44.0); MEAN CORPUSCULAR HEMOGLOBIN 33 PG (26.0-33.0); MEAN CORPUSCULAR HGB CONC 33 g/dl (31.0-36.0); MEAN CORPUSCULAR VOLUME 99 fL (80-96); MONOCYTES # (AUTO) 0.5 /CMM (0.1-1.30); MONOCYTES % (AUTO) 5.1 % (2.0-12.0); NEUTROPHILS # (AUTO) 7.8 /CMM (1.8-8.9); PLATELET COUNT (AUTO) 384 /CMM (150-450); RED BLOOD CELL COUNT(AUTO) 2.77 MIL/uL (4.5-6.0); WHITE BLOOD COUNT (AUTO) 9.9 K/uL (4.3-11.0)
[2017-01-12 07:29] LABS: CALCIUM, SERUM 7.8 mg/dL (8.5-10.1); CREATININE 0.7 mg/dL (0.6-1.3); PHOSPHORUS 2.7 mg/dL (2.5-4.9); POTASSIUM 3.5 mmol/L (3.5-5.1)
[2017-01-12 08:00] VITALS: BP 110/69
[2017-01-12] MEDS: METFORMIN 500 MG TABLET NG SCH ×2 (09:04→16:55)
[2017-01-12] MEDS: PYRIDOXINE HCL 50 MG TABLET NG SCH (09:04)
[2017-01-12] MEDS: RIFAMPIN 300 MG CAPSULE GT SCH (09:04)
[2017-01-12] MEDS: ISONIAZID (300 MG) 300 MG TABLET NG SCH (09:04)
[2017-01-12] MEDS: PYRAZINAMIDE 500 MG TABLET NG SCH (09:05)
[2017-01-12] MEDS: HALOPERIDOL LACTATE 10 MG/5 ML UDC GT SCH ×3 (09:05→16:55)
[2017-01-12] MEDS: ETHAMBUTOL HCL (400 MG) 400 MG TABLET NG SCH (09:05)
[2017-01-12] MEDS: BACITRACIN ZINC OINT PACKET 1 EA PACKET TP SCH (09:11)
[2017-01-12] MEDS ORDERED: LEVOFLOXACIN 750 MG /D5W 150ML 750 MG in PREMIX 1 EA IV SCH (11:00)
[2017-01-12] MEDS ORDERED: SECONDARY IV SET 1 EA INFUS.SET MC ONE (12:42)
[2017-01-12] MEDS: IV NS 0.9% 1,000 ML IV PRN (12:54)
[2017-01-12 16:00] VITALS: BP 116/76
[2017-01-12] MEDS ORDERED: FOSFOMYCIN TROMETHAMINE 3 G/PKT PACKET PO ONE (17:00)
[2017-01-12 20:00] VITALS: BP 98/67
[2017-01-12] MEDS: LINEZOLID 600 MG TABLET PO SCH (21:19)
[2017-01-12] MEDS: MIRTAZAPINE 15 MG TABLET GT SCH (21:19)
[2017-01-12] MEDS: FIBERSOURCE HN 1,000 ML BOTTLE NG SCH (21:21)
[2017-01-12] MEDS: *INSULIN REGULAR(HUMULIN R)HUM 100 UNIT/ML VIAL SQ PRN (21:40)
[2017-01-13] MEDS: METRONIDAZOLE 500 MG TABLET GT SCH ×2 (05:02→12:24)
[2017-01-13] MEDS: IV NS 0.9% 1,000 ML IV PRN (05:03)
[2017-01-13] MEDS: BLOOD SUGAR DIAGNOSTIC 1 EACH STRIP VI SCH ×2 (06:35→12:20)
[2017-01-13] MEDS: INSULIN REGULAR, HUMAN 100 UNIT/ML 3 ML VIAL SQ PRN (06:37)
[2017-01-13 08:00] VITALS: BP 112/70
[2017-01-13] MEDS: LINEZOLID 600 MG TABLET PO SCH (08:48)
[2017-01-13] MEDS: ISONIAZID (300 MG) 300 MG TABLET NG SCH (08:48)
[2017-01-13] MEDS: METFORMIN 500 MG TABLET NG SCH (08:48)
[2017-01-13] MEDS: RIFAMPIN 300 MG CAPSULE GT SCH (08:49)
[2017-01-13] MEDS: PYRIDOXINE HCL 50 MG TABLET NG SCH (08:49)
[2017-01-13] MEDS: ETHAMBUTOL HCL (400 MG) 400 MG TABLET NG SCH (08:50)
[2017-01-13] MEDS: HALOPERIDOL LACTATE 10 MG/5 ML UDC GT SCH ×2 (08:50→12:24)
[2017-01-13] MEDS: PYRAZINAMIDE 500 MG TABLET NG SCH (08:51)
[2017-01-13] MEDS ORDERED: BACITRACIN ZINC OINT (15 GM) 15 GM TUBE TP SCH (09:00)
[2017-01-13] MEDS ORDERED: LINE600T PO (11:00)
[2017-01-13] MEDS ORDERED: AMOXICILLIN TRIHYDRATE 250 MG CAPSULE PO SCH (21:00)
== END 2017-01-13 15:00 | DRG 690 ==
LOC: MED 14:34 → TELE 15:05 → MED 12-14 08:32 → TELE 12-14 18:37 → MED 12-16 09:18
PROC: 05H633Z Insertion of Infusion Device into Left Subclavian Vein, Percutaneous Approach (ICD-10-PCS; 2017-01-05)
PROC: 0DH63UZ Insertion of Feeding Device into Stomach, Percutaneous Approach (ICD-10-PCS; principal; 2017-01-07 10:00)
DX: N39.0 Urinary tract infection, site not specified (principal); E44.0 Moderate protein-calorie malnutrition; I82.611 Acute embolism and thrombosis of superficial veins of right upper extremity; R45.851 Suicidal ideations; A15.0 Tuberculosis of lung; F29 Unspecified psychosis not due to a substance or known physiological condition; R62.7 Adult failure to thrive; F32.9 Major depressive disorder, single episode, unspecified; E87.6 Hypokalemia; F03.90 Unspecified dementia, unspecified severity, without behavioral disturbance, psychotic disturbance, mood disturbance, and anxiety; E11.9 Type 2 diabetes mellitus without complications; J44.9 Chronic obstructive pulmonary disease, unspecified; Z91.19 Patient's noncompliance with other medical treatment and regimen; Z86.11 Personal history of tuberculosis; E87.5 Hyperkalemia; D63.8 Anemia in other chronic diseases classified elsewhere; R13.10 Dysphagia, unspecified; D53.9 Nutritional anemia, unspecified; B95.2 Enterococcus as the cause of diseases classified elsewhere; B96.89 Other specified bacterial agents as the cause of diseases classified elsewhere
CPT/HCPCS: 36415; 36569; 43246; 71010-TC; 74178; 74246-TC; 80048-TC; 80053-TC; 80076-TC; 81000-TC; 82962-TC; 83735-TC; 84100-TC; 84132-TC; 85025-TC; 85610-TC; 86850-TC; 87040-TC; 87070-TC; 87081-TC; 87086-TC; 87116; 87186-TC; 87206; 93971-TC; 94640-TC; 94799-TC; 97001-TC; 97110-TC; 97116-TC; 97530-TC; A4216; A4606; A6402; A9563; J1630; J1815; J1956; J2250; J3010; J3475; J3480; J3490; J7030; J7042; J7050; J7060; Q0162; Q9963; Q9967